=== PATIENT | female | born 1960 | race Caucasian/White ===

== ENCOUNTER → 2017-12-04 14:06 | Outpatient (CLI) | payer OTHER, SELFPAY ==
[2017-12-04 15:57] LABS: Anion Gap 8 (5-15); BUN 13 mg/dL (7-18); BUN/Creat Ratio 14.5 RATIO (10-20); Calcium,Total 8.3 mg/dL (8.5-10.1); Chloride 107 mmol/L (98-107); Cholesterol 258 mg/dL (200); EST Glomerular Filtration Rate 69 mL/min (>60); Est Glom Filt Rate - Afr Amer 83 mL/min (>60); Glucose 94 mg/dL (74-106); High Density Lipoprotein 38 mg/dL; Potassium 3.5 mmol/L (3.5-5.1); Sodium Level 142 mmol/L (136-145); Triglycerides 179 mg/dL; Very Low Density Lipoprotein 36 mg/dL (5-40)
== END ==
PROVIDERS: PCP Family Medicine; Visit Provider Family Medicine
DX: I10 Essential (primary) hypertension (principal)
CPT/HCPCS: 36415; 80048; 80061

== ENCOUNTER → 2018-07-09 15:13 | Outpatient (CLI) | payer OTHER, SELFPAY ==
[2018-07-15 11:32] LABS: HPV Reflexed? NOT INDICATED
== END ==
PROVIDERS: PCP Family Medicine; Visit Provider Family Medicine
DX: Z12.4 Encounter for screening for malignant neoplasm of cervix (principal)
CPT/HCPCS: 88175; G0145

== ENCOUNTER → 2018-07-26 12:40 | Outpatient (CLI) | payer OTHER, SELFPAY ==
--- NOTE | 2018-07-26 12:49 | BI_ITS ---
MAMMOGRAPHY - BILATERAL SCREENING REASON FOR EXAM: Female, 58 years old. Routine annual screening examination. PERTINENT HISTORY: Non-contributory. TECHNIQUE: Digital bilateral breast dianna (3D mammographic acquisition) in the CC and MLO projections. 2-D mediolateral oblique (MLO) and craniocaudad (CC) views of both breasts were obtained. CAD: Full Field Digital Mammography with Computer Added Detection was performed. COMPARISON: Comparison is made with prior study dated January 02, 2017 and July 14, 2015. FINDINGS: Breast Composition: There are scattered areas of fibroglandular density. There are no dominant masses or suspicious calcifications. Suspect a new 8.8 mm x 7.3 mm well-defined nodular density in the medial retroareolar region of the left breast. Correlation with ultrasound is recommended. Stable benign-appearing bilateral axillary lymph nodes. No other significant abnormalities are identified. BI/SCREENING MAMM (CAD), BILAT IMPRESSION: Questionable new 7.3 mm x 8.8 mm well-defined nodule in the medial retroareolar region of the left breast. Correlation with ultrasound is recommended. ASSESSMENT CATEGORY: BIRADS Category 0: Incomplete. Need additional imaging evaluation. A letter regarding these results will be sent to the patient by the facility within 30 days. Approximately 10% of breast cancers are not detected by mammography. A normal mammogram should not delay biopsy of a clinically suspicious abnormality. [id number] Electronically Signed: Elliot Root MD at 14:40 EST Tel [phone], Service support ,
--- OUTSIDE RECORDS SUMMARY | 2018-09-20 16:12 | XMS RPT_ITS ---
:1960 Author Organization [facility] Care Team Providers Name Role Phone Maryjane Pedroza Attending Unavailable Maryjane Pedroza Attending Unavailable Maryjane Pedroza Attending Unavailable Maryjane Pedroza Attending Unavailable PROBLEMS PROBLEMS No Problem Records FoundPROCEDURES PROCEDURES No Procedure Records FoundRESULTS RESULTS BREAST LIMITED Observed: 07/27/2018 Status: F Source: [place] UNILATERAL 2:33 PM [facility] REPOSITORY [facility] Imaging Services [address] [place] [address] Breast Limited Unilateral MR#: [id number] Acct: [id number] Name: MARGARITA MENDIETA Rep #: [id number] : 1960 F 58 From: Elliot Root MD PCP: Maryjane Pedroza MD Status: REG CLI Study: Breast Limited Unilateral Date of Exam: 07/27/18 Exam# [id number] Ordering Dr: Maryjane Pedroza MD STUDY: ULTRASOUND BREAST - LEFT REASON FOR EXAM: Female, 58 years old. Abnormal screening mammogram. TECHNIQUE: Axial and longitudinal images of the LEFT breast were performed with a high resolution ultrasound transducer. COMPARISON: Comparison is made with prior mammogram dated July 26, 2018. FINDINGS: LEFT Breast: There is a 7 mm x 8 mm x 5 mm cluster of small cysts at the 10:00 position breast at 1 cm from the nipple. This corresponds to the mammographic findings. US/Breast Limited Unilateral IMPRESSION: The mammographic findings corresponds to a 7 mm x 8 mm x 5 mm cluster of cysts. ASSESSMENT CATEGORY: BIRADS Category 2: Benign. A letter regarding these results will be sent to the patient by the facility within 30 days. Electronically Signed: Elliot Root MD at 15:06 EST Tel [phone], Service support , CC: Maryjane Pedroza MD Gun Examiner: Signed SCREENING MAMM (CAD), Observed: 07/26/2018 Status: F Source: [facility] 12:49 PM [facility] REPOSITORY [facility] Imaging Services [address] [place] [address] SCREENING MAMM (CAD), BILAT MR#: [id number] Acct: [id number] Name: MARGARITA MENDIETA Rep #: [id number] : 1960 F 58 From: Elliot Root MD PCP: Maryjane Pedroza MD Status: REG CLI Study: SCREENING MAMM (CAD), BILAT Date of Exam: 07/26/18 Exam# [id number] Ordering Dr: Maryjane Pedroza MD MAMMOGRAPHY - BILATERAL SCREENING REASON FOR EXAM: Female, 58 years old. Routine annual screening examination. PERTINENT HISTORY: Non-contributory. TECHNIQUE: Digital bilateral breast dianna (3D mammographic acquisition) in the CC and MLO projections. 2-D mediolateral oblique (MLO) and craniocaudad (CC) views of both breasts were obtained. CAD: Full Field Digital Mammography with Computer Added Detection was performed. COMPARISON: Comparison is made with prior study dated January 02, 2017 and July 14, 2015. FINDINGS: Breast Composition: There are scattered areas of fibroglandular density. There are no dominant masses or suspicious calcifications. Suspect a new 8.8 mm x 7.3 mm well-defined nodular density in the medial retroareolar region of the left breast. Correlation with ultrasound is recommended. Stable benign-appearing bilateral axillary lymph nodes. No other significant abnormalities are identified. BI/SCREENING MAMM (CAD), BILAT IMPRESSION: Questionable new 7.3 mm x 8.8 mm well-defined nodule in the medial retroareolar region of the left breast. Correlation with ultrasound is recommended. ASSESSMENT CATEGORY: BIRADS Category 0: Incomplete. Need additional imaging evaluation. A letter regarding these results will be sent to the patient by the facility within 30 days. Approximately 10% of breast cancers are not detected by mammography. A normal mammogram should not delay biopsy of a clinically suspicious abnormality. [id number] Electronically Signed: Elliot Root MD at 14:40 EST Tel [phone], Service support , CC: Maryjane Pedroza MD Gun Examiner: Signed PAP I-G W/RFX HRHPV Collected: 07/09/2018 Status: F Source: [place]GE 11:45 AM [facility] REPOSITORY Order Comment: CYTOLOGY INFORMATION: - CLINICAL INFORMATION: - DATE LMP/MENOPAUSE: MENOPAUSE MENOPAUSE - COLLECTION VIAL: Thin Prep Vial - BOSS DYER SOURCE: CERVICAL AND ENDOMETRIUM - COLLECTION TECHNIQUE: BRUSH/SPATULA Specimen Comment: [id number] Specimen Comment: Source.............Cervix;Endometrial Specimen Comment: Other..............Post Menopausal Specimen Comment: No. of containers..01 ThinPrep Vial TYPE CODE TESTS RESULT OUT OF RANGE REFERENCE UNITS LAB L7400.0800 . Normal DIAGN Comment Result Comment: NEGATIVE FOR INTRAEPITHELIAL LESION AND MALIGNANCY. CELLULAR CHANGES ASSOCIATED WITH ATROPHY ARE PRESENT. LAB L7400.0900 . Normal ADEQ Comment Result Comment: Satisfactory for evaluation. Endocervical component may not be distinguished in cases of atrophy. LAB L7400.1400 . Normal PERFORM Comment Result Comment: Kate Galindo, Diagnostic Medical Sonographer (ASCP) LAB L7400.2575 . Normal TEST METHOD Comment Result Comment: This liquid based ThinPrep(R) pap test was screened with the use of an image guided system. LAB L7400.2600 . Normal . COMM LAB L7400.2700 . Normal PAPSMR Comment Result Comment: The Pap smear is a screening test designed to aid in the detection of premalignant and malignant conditions of the uterine cervix. It is not a diagnostic procedure and should not be used as the sole means of detecting cervical cancer. Both false-positive and false-negative reports do occur. LAB L7400.2800 . Normal HPV RFLX Comment Result Comment: The HPV DNA reflex criteria were not met with this specimen result therefore, no HPV testing was performed. Performed at: [address] [id number] Rx Specialist: Selina Le MD, Phone: [phone] Performed By: #### L7400.0350 #### [facility] (refer to report for specific site) refer to report for address and phone number BASIC METABOLIC Collected: 12/04/2017 Status: F Source: SERGE PROFILE (BMP) 2:09 PM [facility] REPOSITORY TYPE CODE TESTS RESULT OUT OF RANGE REFERENCE UNITS LAB L501.0100 74-106 mg/dL Normal GLU 94 Result Comment: Please note revised GLUCOSE reference range effective 2017. LAB L501.1000 7-18 mg/dL Normal BUN 13 LAB L501.1100 0.55-1.02 mg/dL Normal CREAT,SERUM 0.90 Result Comment: The validity of the calculated GFR AND GFRAA in patients over 70 years has not been determined. Clinical correlation is essential. LAB L501.1110 >60 mL/min Normal EST GFR 69 Result Comment: Non- GFR Calc LAB L501.1115 >60 mL/min Normal EST GFR - AA 83 Result Comment: GFR Calc LAB L501.1300 10-20 RATIO Normal BUN/CRE 14.5 LAB L501.2200 8.5-10.1 mg/dL Low CA 8.3 LAB L501.5300 136-145 mmol/L NA Normal 142 LAB L501.5600 3.5-5.1 mmol/L K Normal 3.5 LAB L501.5900 98-107 mmol/L CL Normal 107 LAB L501.6100 21.0-32.0 mmol/L Normal CO2 27.0 LAB L501.6200 5-15 Normal GAP 8 Performed By: #### L500.2500, L500.4100 #### [facility] [address] [place], [address] LIPID PROFILE Collected: 12/04/2017 Status: F Source: [place] 2:09 [facility] REPOSITORY TYPE CODE TESTS RESULT OUT OF RANGE REFERENCE UNITS LAB L501.4900 200 mg/dL High CHOL 258 Result Comment: <200 mg/dL Desirable 200-240 mg/dL Borderline >240 mg/dL High Risk LAB L501.5000 mg/dL Normal TRIG 179 Result Comment: The drugs N-Acetylcysteine and Metamizole may falsely depress this assay. Serum Triglycerides Reference Interval Normal <150 mg/dL Borderline high 150 - 199 mg/dL High 200 - 499 mg/dL Very High > or = 500 mg/dL LAB L501.6400 mg/dL Low HDL 38 Result Comment: The drugs N-Acetylcysteine and Metamizole may falsely depress this assay. Reference Range HDL <40 mg/dL Low HDL Cholesterol HDL >or= 60 mg/dL High HDL Cholesterol LAB L501.6500 0-130 mg/dL High LDL 184 LAB L501.6600 5-40 mg/dL Normal VLDL 36 Performed By: #### L500.2500, L500.4100 #### [facility] [address] [place], [address] ALLERGIES ALLERGIES No Allergies Records FoundENCOUNTERS ENCOUNTERS ADMIT/DISCHARGE ACCOUNT ADMITTING ENCOUNTER LOCATION SOURCE NUMBER CLASS 07/27/2018 [id number] Ambulatory Serge Serge 2 [facility] ing:OPUS Repository 07/26/2018 [id number] Ambulatory Sachse Sachse 1 [facility] ing:OPBI Repository 07/09/2018 [id number] Ambulatory Serge Serge 7 [facility] ing:LABSPEC Repository 12/04/2017 [id number] Ambulatory Sachse Serge 6 [facility] ing:MFPLAB Repository PAYERS PAYERS ENCOUNTER GUARANTOR PAYER SUBSCRIBER SOURCE 07/27/2018 MARGARITA Primary FLAVIOWAYLON Valentine [id number] Insurance:SELF VALENTINEDOB: [facility] [id number], [place]olicy Number: Repository [id number]: [phone] [id number] [phone] () Date:2437-00-09CF [address] [place] [address]NX: 07/27/2018 Secondary NOT GIVENUNK Serge Insurance:SELF PAY [facility] Number: Effective Repository Date:2018-07-27 07/26/2018 FLAVIO Primary FLAVIO Valentine [id number] Insurance:SELF VALENTINEDOB: [facility] [id number] Number: Repository [id number]: [phone] [id number] [phone] () Date:9305-14-89DR [address] [address]OW: 07/26/2018 Secondary NOT GIVENUNK Serge Insurance:SELF PAY [facility] Number: Effective Repository Date:2018-06-14 07/09/2018 MARGARITA Primary Flaviowaylon Valentine [id number] Insurance:MEDICAL ValentineDOB: [facility] 9712-93-[address], [place] Number: Repository [id number]: 330 [id number] [phone] () Date:3886-17-11LG [address] [address]CJ: 07/09/2018 Secondary NOT GIVENUNK Sachse Insurance:SELF PAY [facility] Number: Effective Repository Date:2018-07-09 12/04/2017 Flavio Primary Flavio Serge [id number] Insurance:MEDICAL PaulinoOB: [facility] [id number] Number: Repository [id number]: 330 [id number] [phone] () Date:5487-60-63FI [address] [address]ZD: 12/04/2017 Secondary NOT GIVENUNK Sachse Insurance:SELF PAY [facility] Number: Effective Repository Date:2017-12-04
== END ==
PROVIDERS: PCP Family Medicine; Visit Provider Family Medicine
DX: Z12.31 Encounter for screening mammogram for malignant neoplasm of breast (principal)
CPT/HCPCS: 77063; 77067

== ENCOUNTER → 2018-07-27 14:31 | Outpatient (CLI) | payer OTHER, SELFPAY ==
--- NOTE | 2018-07-27 14:33 | US_ITS ---
STUDY: ULTRASOUND BREAST - LEFT REASON FOR EXAM: Female, 58 years old. Abnormal screening mammogram. TECHNIQUE: Axial and longitudinal images of the LEFT breast were performed with a high resolution ultrasound transducer. COMPARISON: Comparison is made with prior mammogram dated July 26, 2018. FINDINGS: LEFT Breast: There is a 7 mm x 8 mm x 5 mm cluster of small cysts at the 10:00 position breast at 1 cm from the nipple. This corresponds to the mammographic findings. US/Breast Limited Unilateral IMPRESSION: The mammographic findings corresponds to a 7 mm x 8 mm x 5 mm cluster of cysts. ASSESSMENT CATEGORY: BIRADS Category 2: Benign. A letter regarding these results will be sent to the patient by the facility within 30 days. Electronically Signed: Elliot Root MD at 15:06 EST Tel [phone], Service support ,
--- OUTSIDE RECORDS SUMMARY | 2018-09-21 14:03 | XMS RPT_ITS ---
:1960 Author Organization [facility]IP Care Team Providers Name Role Phone Maryjane Pedroza Attending Unavailable Maryjane Pedroza Attending Unavailable Maryjane Pedroza Attending Unavailable Maryjane Pedroza Attending Unavailable PROBLEMS PROBLEMS No Problem Records FoundPROCEDURES PROCEDURES No Procedure Records FoundRESULTS RESULTS BREAST LIMITED Observed: 07/27/2018 Status: F Source: [place] UNILATERAL 2:33 PM [facility] [place] [facility] Imaging Services [address] [place] [address] Breast Limited Unilateral MR#: [id number] Acct: [id number] Name: MARGARITA MENDIETA Rep #: [id number] : 1960 F 58 From: Elliot Root MD PCP: Maryjane Pedroza MD Status: REG CLI Study: Breast Limited Unilateral Date of Exam: 07/27/18 Exam# [id number] Ordering Dr: Maryjane Pedroza MD STUDY: ULTRASOUND [...] Elliot Root MD at 15:06 EST Tel [phone], Service support , CC: Maryjane Pedroza MD Section Housekeeper: Signed SCREENING MAMM (CAD), Observed: 07/26/2018 Status: F Source: [facility] 12:49 PM [facility] [place] [facility] Imaging Services [address] [place] [address] SCREENING MAMM (CAD), BILAT MR#: [id number] Acct: [id number] Name: MARGARITA MENDIETA Rep #: [id number] : 1960 F 58 From: Elliot Root MD PCP: Maryjane Pedroza MD Status: REG CLI Study: SCREENING MAMM (CAD), BILAT Date of Exam: 07/26/18 Exam# [id number] Ordering Dr: Maryjane Pedroza MD MAMMOGRAPHY - [...] delay biopsy of a clinically suspicious abnormality. [id number] Electronically Signed: Elliot Root MD at 14:40 EST Tel [phone], Service support , CC: Maryjane Pedroza MD Section Housekeeper: Signed PAP I-G W/RFX HRHPV Collected: 07/09/2018 Status: F Source: [place] 11:45 AM [facility] [place] Order Comment: CYTOLOGY INFORMATION: - CLINICAL INFORMATION: - DATE LMP/MENOPAUSE: MENOPAUSE MENOPAUSE - COLLECTION VIAL: Thin Prep Vial - T RAIL TURNER SOURCE: CERVICAL AND ENDOMETRIUM - COLLECTION TECHNIQUE: BRUSH/SPATULA Specimen Comment: [id number] Specimen Comment: Source.............Cervix;Endometrial Specimen Comment: Other..............Post Menopausal [...] Normal PERFORM Comment Result Comment: Kate Galindo, [place] Applier (ASCP) LAB L7400.2575 . Normal TEST METHOD [...] no HPV testing was performed. Performed at: [address] [id number] Animal Control Specialist: Selina Le MD, Phone: [phone] Performed By: #### L7400.0350 #### [facility] (refer to report for specific site) refer to report for address and phone number BASIC METABOLIC Collected: 12/04/2017 Status: F Source: [place] PROFILE (BMP) 2:09 PM [facility] [place] TYPE CODE TESTS RESULT OUT OF [...] #### [facility] [address] [place], [address] LIPID PROFILE Collected: 12/04/2017 Status: F Source: [place] 2:09 [facility] [place] TYPE CODE TESTS RESULT OUT OF [...] [facility] [address] [place], [address] ALLERGIES ALLERGIES No Allergies Records FoundENCOUNTERS ENCOUNTERS ADMIT/DISCHARGE ACCOUNT ADMITTING ENCOUNTER LOCATION SOURCE NUMBER CLASS 07/27/2018 [id number] Ambulatory Serge Serge 2 [facility] ing:OPUS Repository 07/26/2018 [id number] Ambulatory Christiana Christiana 1 [facility] ing:OPBI Repository 07/09/2018 [id number] Ambulatory Serge Serge 7 [facility] ing:LABSPEC Repository 12/04/2017 [id number] Ambulatory Christiana Serge 6 [facility] ing:MFPLAB Repository PAYERS PAYERS ENCOUNTER GUARANTOR PAYER SUBSCRIBER SOURCE 07/27/2018 MARGARITA Primary FLAVIOWAYLON Valentine [id number] Insurance:SELF VALENTINEDOB: [facility] [id number] Number: Repository [id number]: [phone] [id number] [phone] () Date:3491-72-36GD [address] [place] [address]YX: 07/27/2018 Secondary NOT GIVENUNK Serge Insurance:SELF PAY [facility] Number: Effective Repository Date:2018-07-27 07/26/2018 FLAVIO Primary FLAVIO Valentine [id number] Insurance:SELF VALENTINEDOB: [facility] [id number] Number: Repository [id number]: [phone] [id number] [phone] () Date:5223-24-22SY [address] [address]EL: 07/26/2018 Secondary NOT GIVENUNK Serge Insurance:SELF PAY [facility] Number: Effective Repository Date:2018-06-14 07/09/2018 MARGARITA Primary Flaviowaylon Valentine [id number] Insurance:MEDICAL ValentineDOB: [facility] [id number] Number: Repository [id number]: 330 [id number] [phone] () Date:1142-76-18PL [address] [address]JG: 07/09/2018 Secondary NOT GIVENUNK Christiana Insurance:SELF PAY [facility] Number: Effective Repository Date:2018-07-09 12/04/2017 Flavio Primary Flavio Serge [id number] Insurance:MEDICAL PaulinoOB: [facility] [id number] Number: Repository [id number]: 330 [id number] [phone] () Date:3282-70-04TG [address] [address]QW: 12/04/2017 Secondary NOT GIVENUNK Christiana Insurance:SELF PAY [facility] Number: Effective Repository Date:2017-12-04
== END ==
PROVIDERS: PCP Family Medicine; Visit Provider Family Medicine
DX: N63.0 Unspecified lump in unspecified breast (principal)
CPT/HCPCS: 76642

== ENCOUNTER → 2019-11-04 13:33 | Outpatient (CLI) | payer OTHER, SELFPAY ==
--- NOTE | 2019-11-04 13:36 | BI_ITS ---
MAMMOGRAPHY - BILATERAL SCREENING REASON FOR EXAM: Female, 59 years old. Routine annual screening examination. PERTINENT HISTORY: Non-contributory. TECHNIQUE: Digital bilateral breast ramos (3D mammographic acquisition) in the CC and MLO projections. 2-D mediolateral oblique (MLO) and craniocaudad (CC) views of both breasts were obtained. CAD: Full Field Digital Mammography with Computer Added Detection was performed. COMPARISON: Comparison is made with prior study dated July 26, 2018 and January 02, 2017. FINDINGS: Breast Composition: There are scattered areas of fibroglandular density. There are no dominant masses or suspicious calcifications. The previously seen subcentimeter well-defined nodule in the medial retroareolar region of the left breast is not seen at this time. No other significant abnormalities are identified. BI/SCREEN MAMM (CAD) W/RAMOS BILAT IMPRESSION: Stable bilateral screening mammogram. Yearly follow-up mammogram recommended. (A) ASSESSMENT CATEGORY: BIRADS Category 1: Negative. A letter regarding these results will be sent to the patient by the facility within 30 days. Approximately 10% of breast cancers are not detected by mammography. A normal mammogram should not delay biopsy of a clinically suspicious abnormality. [id number] Electronically Signed: Elliot Root, at 15:14 EDT , Service support ,
== END ==
PROVIDERS: PCP Family Medicine; Referring Provider Family Medicine; Visit Provider Family Medicine
DX: Z12.31 Encounter for screening mammogram for malignant neoplasm of breast (principal)
CPT/HCPCS: 77063; 77067

== ENCOUNTER → 2020-08-14 11:28 | Outpatient (CLI) | payer OTHER, SELFPAY ==
[2020-08-14 16:16] LABS: Absolute Lymphocyte Count 2.03 X10^3/uL (0.83-4.51); Absolute Neutrophil Count 3.6 X10^3/uL (2.0-7.7); Basophil# 0.01 X10^3/uL; Basophil% 0.2 % (0-1); Eosinophil# 0.08 X10^3/uL; Eosinophils% 1.3 % (0-5); Hematocrit 46.8 % (37-47); Hemoglobin 15.4 g/dL (12.0-15.0); Lymphocyte # 2.03 X10^3/ul (4.0); Lymphocyte % 32.6 % (19-41); Mean Corp Hgb Conc 32.9 g/dL (32-36); Mean Corpuscular Hgb 29.8 pg (27.0-32.0); Mean Corpuscular Volume 90.7 fL (81-99); Mean Platelet Vol. 10.8 fl (6.2-12.0); Monocyte# 0.47 X10^3/uL; Monocyte% 7.5 % (0-10); NRBC Flagged by Analyzer 0 % (0-5); Neutrophil # 3.62 X10^3/uL (2.7-7.7); Neutrophil % 58.1 % (47-70); Platelet Count 246 K/mm3 (150-450); RBC Distribution Width CV 12.8 % (11.6-14.6); RBC Distribution Width SD 42.5 fl (35.1-43.9); Red Blood Count 5.16 M/mm3 (4.2-5.4); White Blood Count 6.2 K/mm3 (4.4-11.0)
[2020-08-14 16:45] LABS: AST(SGOT) 19 U/L (15-37); Alanine Aminotransfer ALT/SGPT 30 U/L (13-56); Anion Gap 8 (5-15); BUN 10 mg/dL (7-18); Calcium,Total 8.8 mg/dL (8.5-10.1); Chloride 106 mmol/L (98-107); Cholesterol 312 mg/dL (200); Creatinine, Serum 0.91 mg/dL (0.55-1.02); EST Glomerular Filtration Rate 67 mL/min (>60); Est Glom Filt Rate - Afr Amer 81 mL/min (>60); Glucose 95 mg/dL (74-106); High Density Lipoprotein 51 mg/dL; Potassium 3.9 mmol/L (3.5-5.1); Sodium Level 139 mmol/L (136-145); Thyroid Stim Hormone (TSH) 1.39 uIU/mL (0.358-3.74); Triglycerides 197 mg/dL; Very Low Density Lipoprotein 39 mg/dL (5-40)
[2020-08-14 16:46] LABS: Hemoglobin A1c 5.7 % (3.8-5.6)
== END ==
PROVIDERS: PCP Family Medicine; Referring Provider Family Medicine; Visit Provider Family Medicine
DX: I10 Essential (primary) hypertension (principal); E78.00 Pure hypercholesterolemia, unspecified; E66.9 Obesity, unspecified; N95.0 Postmenopausal bleeding
CPT/HCPCS: 36415; 80048; 80061; 83036; 84443; 84450; 84460; 85025

== ENCOUNTER → 2020-08-17 13:08 | Outpatient (CLI) | payer OTHER, SELFPAY ==
--- NOTE | 2020-08-17 13:10 | US_ITS ---
ACR Level 3 findings have been noted. An addendum which confirms receipt of the report will follow. STUDY: ULTRASOUND TRANSVAGINAL CLINICAL: Female, 60 years old. Postmenopausal bleeding. TECHNIQUE: Transvaginal COMPARISON: None. FINDINGS: Uterus is anteverted in midline and measures 8.3 x 5.1 x 3.4 cm. Endometrial thickness 18 mm. Endometrium is heterogeneous. 0.3 cm calcification anterior body with posterior shadowing likely representing an incidental calcified fibroid. Cervix is normal. Right ovary not visualized. Left ovary measures 1.9 x 1.5 x 1.7 cm and is normal. Normal vascular flow. No adnexal mass. No free fluid in the cul-de-sac. US/Transvaginal Non- IMPRESSION: Significantly thickened endometrium in this postmenopausal woman with bleeding. Malignancy is a consideration. Recommend OIL FIRE SPECIALIST consult. Right ovary not visualized. Small calcified uterine fibroid. Electronically Signed: Marshall Palacios MD at 3:34 EST , Service support ,
== END ==
PROVIDERS: PCP Family Medicine; Referring Provider Family Medicine; Visit Provider Family Medicine
DX: N95.0 Postmenopausal bleeding (principal)
CPT/HCPCS: 76830

== ENCOUNTER → 2020-08-20 | Outpatient (CLI) | payer OTHER, SELFPAY ==
[2020-08-18 13:27] VITALS: BMI 34.0
--- NOTE | 2020-08-19 | EMB_PTH ---
PATIENT: MARGARITA MENDIETA [facility]: [facility] U#:[id number] AGE/SX: 60/F ROOM: RE08/20/[address]: Dr. Kristina Jones MD : 1960 BED: DIS: 08/20/2020 SPEC #: [id number] RECD: 08/19/20 17:02 STATUS: CARYL RELilo #: [id number] MAXX: 08/19/20 00:[address]: Kristina Jones DEPT: SURGICAL PATHOLOGY RECD BY: Javier Thomas ENTERED: 08/20/20 08:23 SP TYPE: ENDOM BX/C PERLA DR: Dr. Maryjane Pedroza MD Tissues: Endometrium, NOS Procedures: Surgery Specimen Level IV HEADER OPERATION: Endometrial biopsy PRE-OP DIAGNOSIS: PMB TISSUE SUBMITTED: Endometrial biopsy MICROSCOPIC DIAGNOSIS Endometrium, biopsy: Complex hyperplasia with atypia. AM:joie 08/24/20 COMMENT Case has been reviewed in consultation with Dr. Alvarenga who concurs with the above diagnosis. IDC:SJ MICROSCOPIC DESCRIPTION Slides are reviewed. GROSS DESCRIPTION Received is one container labeled with the patient's name and not further designated. The specimen consists of multiple irregular fragments of light white soft tissue that in aggregate measure 2.5 x 1 x 0.1 cm. The specimen is totally submitted in one cassette. / COLUMBA:joie 08/19/20 TC:? CPT: 01210
== END | disposition home or self-care (01) ==
LOC: LABSPEC 07:43
PROVIDERS: PCP Family Medicine; Visit Provider Obstetrics & Gynecology
DX: N95.0 Postmenopausal bleeding (principal)
CPT/HCPCS: 88305

== ENCOUNTER 2020-11-13 15:15 | Outpatient (RCR) | payer OTHER, SELFPAY ==
[2020-08-18 13:27] VITALS: BMI 34.0
[2020-11-13] MEDS: COVID-19 VACC, MRNA(PFIZER)/PF 30 MCG/0.3 ML SYRINGE IM (14:35)
[2020-12-04] MEDS: COVID-19 VACC, MRNA(PFIZER)/PF 30 MCG/0.3 ML SYRINGE IM (14:34)
== END 2020-11-13 23:59 ==
LOC: IMMUN 15:15
PROVIDERS: PCP Family Medicine; Referring Provider Family Medicine; Visit Provider Family Medicine
DX: Z23 Encounter for immunization (principal)
CPT/HCPCS: 0001A; 0002A; 91300

== ENCOUNTER → 2021-02-17 15:54 | Outpatient (CLI) | payer OTHER, SELFPAY ==
[2020-08-18 13:27] VITALS: BMI 34.0
--- NOTE | 2021-02-17 15:57 | BI_ITS ---
MAMMOGRAPHY - BILATERAL SCREENING 3-D TOMOSYNTHESIS REASON FOR EXAM: Female, 60 years old. SCREENING PERTINENT HISTORY: No significant family history. TECHNIQUE: 2-D mammograms and 3-D Tomosynthesis of the breast (s) were performed. CAD was performed. COMPARISON: 11/04/2019 FINDINGS: The breast composition is of scattered fibroglandular tissue Scattered benign calcifications are seen. No dense spiculated masses or suspicious microcalcifications are identified. No architectural distortion is identified. There is no skin thickening or nipple retraction. Tiny benign intramammary lymph node seen on the right. There has been no significant change since the prior study of 11/04/2019. BI/SCRN MAMM (CAD)W/RAMOS BILAT IMPRESSION: No mammographic signs of malignancy. Routine yearly mammograms recommended. ASSESSMENT CATEGORY: BIRADS Category 1: Negative. A letter regarding these results will be sent to the patient by the facility within 30 days. FOLLOW UP RECOMMENDATION: Yearly follow up mammogram recommended. (A) Approximately 10% of breast cancers are not detected by mammography. A normal mammogram should not delay biopsy of a clinically suspicious abnormality. Electronically Signed: Feliciano Parks, at 16:14 EDT Tel , Service support ,
== END ==
PROVIDERS: PCP Family Medicine; Referring Provider Family Medicine; Visit Provider Family Medicine
DX: Z01.419 Encounter for gynecological examination (general) (routine) without abnormal findings (principal); Z12.31 Encounter for screening mammogram for malignant neoplasm of breast
CPT/HCPCS: 77063; 77067

== ENCOUNTER → 2021-05-04 15:21 | Outpatient (CLI) | payer OTHER, SELFPAY ==
--- NOTE | 2021-05-04 15:26 | RAD_ITS ---
STUDY: X-RAY - LUMBAR SPINE REASON FOR EXAM: Female, 61 years old. BACK PAIN TECHNIQUE: AP, bilateral oblique, lateral, and coned-down lateral radiographic view(s) of the lumbar spine were obtained. COMPARISON: None FINDINGS: There is straightening of the normal lumbar lordosis. There is no substantial scoliosis. There is a normal alignment of the vertebrae. L4 inferior endplate compression deformity. There is diffuse demineralization with multi-level endplate spondylosis. There is multi-level degenerative disc disease with multi-level disc space narrowing. There is no demonstrated spondylolysis of the pars interarticulares. There is atherosclerotic calcification of the abdominal aorta without a demonstrated aneurysm. RAD/L/S Spine Min 4 Views IMPRESSION: L4 inferior endplate compression deformity of uncertain acuity. Degenerative changes detailed above. Electronically Signed: Bishop Ding MD at 7:53 EDT Tel , Service support ,
--- NOTE | 2021-05-04 15:26 | RAD_ITS ---
STUDY: X-RAY - PELVIS AND LEFT HIP REASON FOR EXAM: Female, 61 years old. Pain. TECHNIQUE: 3 views of the pelvis and hip. COMPARISON: None. FINDINGS: There is a non-specific bowel gas pattern. Phleboliths. Normal bilateral iliac wings, sacroiliac joints and visualized sacrum. Normal bilateral superior and inferior pubic rami. Normal pubic symphysis. Normal bilateral ischial tuberosities. Normal visualized femoral head. Normal acetabulum. Normal hip joint. RAD/HIP, UNI W/ Pelvis 2-3 Views IMPRESSION: Normal x-ray examination of the pelvis and hip. No acute abnormality, erosive changes or periostitis. Electronically Signed: Keenan Noel MD at 11:12 EDT , Service support ,
== END ==
PROVIDERS: PCP Family Medicine; Referring Provider Family Medicine; Visit Provider Family Medicine
DX: M54.9 Dorsalgia, unspecified (principal); M25.552 Pain in left hip
CPT/HCPCS: 72110; 73502

== ENCOUNTER → 2021-05-18 15:04 | Outpatient (CLI) | payer OTHER, SELFPAY ==
--- NOTE | 2021-05-18 15:09 | BD_ITS ---
STUDY: DUAL ENERGY X-RAY ABSORPTIOMETRY / DXA REASON FOR EXAM: Female, 61 years old. M54.9. Patient is postmenopausal. TECHNIQUE: Bone Mineral Density (BMD) measurements of lumbar spine and bilateral hips were obtained. COMPARISON: None. FINDINGS: Lumbar Spine (L1-L4): g/cm2 (0.639) / T-score (-3.7) / Z-score (-2.3) Findings are suggestive of osteoporosis with a high fracture risk. Left Femur Total: g/cm2 (0.821) / T-score (-1.0) / Z-score (0.0) Left Femoral Neck: g/cm2 (0.527) / T-score (-2.9) / Z-score (-1.6) Right Femur Total: g/cm2 (0.730) / T-score (-1.7) / Z-score (-0.8) Right Femoral Neck: g/cm2 (0.581) / T-score (-2.4) / Z-score (-1.1) BD/Dexa Bone Density Study IMPRESSION: The patient is considered osteoporotic as outlined below according to World Main Organization (WHO) criteria with a high fracture risk. Reference Information: The T-score is the number of standard deviations above or below the standard which is normal for young adults at their peak bone mineral density. The World Health Organization (WHO) interprets the T-scores as follows: Above -1 Normal bone density Between -1 and -2.5 Osteopenia Equal to / or below -2.5 Osteoporosis As a practical clinical guideline, osteopenia may be graded as follows: Mild -1 through -1.5 Moderate -1.6 through -2.0 Severe -2.1 through -2.4 The Z-score is the number of standard deviations above or below age-matched controls. A Z-score of less than -1.5 would be considered abnormal. References: 1. NIH Osteoporosis and Related Bone Diseases www osteo.org 2. International Society for Clinical Densitometry www iscd.org 3. National Osteoporosis Foundation www nof.org Electronically Signed: Elliot Root MD at 14:51 EDT , Service support ,
== END ==
PROVIDERS: PCP Family Medicine; Referring Provider Family Medicine; Visit Provider Family Medicine
DX: Z78.0 Asymptomatic menopausal state (principal); M54.9 Dorsalgia, unspecified
CPT/HCPCS: 77080

== ENCOUNTER → 2021-08-04 14:26 | Outpatient (CLI) | payer OTHER, SELFPAY ==
[2021-08-04 17:41] LABS: Absolute Lymphocyte Count 2.76 X10^3/uL (0.83-4.51); Basophil# 0.02 X10^3/uL; Basophil% 0.2 % (0-1); Eosinophil# 0.14 X10^3/uL; Eosinophils% 1.7 % (0-5); Hematocrit 44.6 % (37-47); Hemoglobin 14.9 g/dL (12.0-15.0); Lymphocyte # 2.76 X10^3/ul (0.83-4.51); Lymphocyte % 32.5 % (19-41); Mean Corp Hgb Conc 33.4 g/dL (32-36); Mean Corpuscular Hgb 29.7 pg (27.0-32.0); Mean Corpuscular Volume 88.8 fL (81-99); Mean Platelet Vol. 10.6 fl (6.2-12.0); Monocyte# 0.57 X10^3/uL; Monocyte% 6.7 % (0-10); NRBC Flagged by Analyzer 0 % (0-5); Neutrophil # 4.97 X10^3/uL (2.7-7.7); Neutrophil % 58.7 % (47-70); Platelet Count 253 K/mm3 (150-450); RBC Distribution Width CV 12.7 % (11.6-14.6); RBC Distribution Width SD 41.2 fl (35.1-43.9); Red Blood Count 5.02 M/mm3 (4.2-5.4); White Blood Count 8.5 K/mm3 (4.4-11.0)
[2021-08-04 18:17] LABS: AST(SGOT) 19 U/L (15-37); Alanine Aminotransfer ALT/SGPT 31 U/L (13-56); Albumin, Serum 3.8 g/dL (3.2-5.0); Alkaline Phosphatase 117 U/L (45-117); Bilirubin, Direct 0.06 mg/dL (0.00-0.30); Globulin 4.3 g/dL (2.2-4.2); Protein, Total 8.1 g/dL (6.4-8.2)
[2021-08-04 20:57] LABS: Internal QC Validated? YES +Cl - CLEAR BKGD; Monotest Negative (Negative)
== END ==
PROVIDERS: PCP Family Medicine; Referring Provider Family Medicine; Visit Provider Family Medicine
DX: R53.81 Other malaise (principal); R53.83 Other fatigue
CPT/HCPCS: 36415; 80076; 85025; 86308

== ENCOUNTER → 2021-08-23 | Outpatient (CLI) | payer OTHER, SELFPAY | END | disposition home or self-care (01) | PROVIDERS: PCP Family Medicine; Referring Provider Family Medicine; Visit Provider Family Medicine | DX: U07.1 COVID-19 (principal) | CPT/HCPCS: 87635; U0005; U0003 ==

== ENCOUNTER → 2022-05-16 | Outpatient (CLI) | payer BC, SELFPAY ==
[2022-05-16 15:43] LABS: ALB/GLOB Ratio 0.9 RATIO (0.9-2.4); AST(SGOT) 17 U/L (15-37); Alanine Aminotransfer ALT/SGPT 25 U/L (13-56); Albumin, Serum 3.6 g/dL (3.2-5.0); Alkaline Phosphatase 124 U/L (45-117); Anion Gap 8 (5-15); BUN 14 mg/dL (7-18); BUN/Creat Ratio 14.8 RATIO (10-20); Calcium,Total 9.1 mg/dL (8.5-10.1); Chloride 106 mmol/L (98-107); Cholesterol 312 mg/dL (200); Creatinine, Serum 0.94 mg/dL (0.55-1.02); EST Glomerular Filtration Rate 64 mL/min (>60); Est Glom Filt Rate - Afr Amer 77 mL/min (>60); Globulin 4.1 g/dL (2.2-4.2); Glucose 93 mg/dL (74-106); High Density Lipoprotein 47 mg/dL; Potassium 3.9 mmol/L (3.5-5.1); Protein, Total 7.7 g/dL (6.4-8.2); Sodium Level 140 mmol/L (136-145); Triglycerides 204 mg/dL; Very Low Density Lipoprotein 41 mg/dL (5-40)
[2022-05-16 17:17] LABS: Hemoglobin A1c 5.9 % (3.8-5.6)
== END | disposition home or self-care (01) ==
LOC: MFPLAB 11:54
PROVIDERS: Nurse Practitioner Family; PCP Family Medicine; Visit Provider Family Medicine
DX: E78.00 Pure hypercholesterolemia, unspecified (principal); Z13.1 Encounter for screening for diabetes mellitus
CPT/HCPCS: 36415; 80053; 80061; 83036

== ENCOUNTER → 2022-05-18 | Outpatient (CLI) | payer BC, SELFPAY ==
--- NOTE | 2022-05-18 13:01 | BI_ITS ---
MAMMOGRAPHY - BILATERAL SCREENING 3-D TOMOSYNTHESIS REASON FOR EXAM: Female, 62 years old. SCREENING PERTINENT HISTORY: No significant family history. TECHNIQUE: 2-D mammograms and 3-D Tomosynthesis of the breast (s) were performed. CAD was performed. COMPARISON: 02/17/2021 FINDINGS: The breast composition is heterogeneously dense that can obscure small breast masses. Scattered benign calcifications are seen. No dense spiculated masses or suspicious microcalcifications are identified. No architectural distortion is identified. There is no skin thickening or retraction. There has been no significant change since the prior study. BI/SCRN MAMM (CAD)W/RAMOS BILAT IMPRESSION: No mammographic signs of malignancy. Routine yearly mammograms recommended. ASSESSMENT CATEGORY: BIRADS Category 1: Negative. A letter regarding these results will be sent to the patient by the facility within 30 days. FOLLOW UP RECOMMENDATION: Yearly follow up mammogram recommended. (A) Approximately 10% of breast cancers are not detected by mammography. A normal mammogram should not delay biopsy of a clinically suspicious abnormality. Electronically Signed: Shashi Soares MD at 14:44 EDT ,
== END | disposition home or self-care (01) ==
LOC: OPBI 12:59
PROVIDERS: PCP Family Medicine; Visit Provider Nurse Practitioner Family
DX: Z12.31 Encounter for screening mammogram for malignant neoplasm of breast (principal)
CPT/HCPCS: 77063; 77067

== ENCOUNTER → 2023-01-19 | Outpatient (CLI) | payer BC, SELFPAY ==
[2023-01-19 15:09] LABS: Absolute Lymphocyte Count 2.27 X10^3/uL (0.83-4.51); Absolute Neutrophil Count 5.3 X10^3/uL (2.0-7.7); Basophil# 0.01 X10^3/uL; Basophil% 0.1 % (0-1); Eosinophil# 0.12 X10^3/uL; Eosinophils% 1.5 % (0-5); Hematocrit 46.4 % (37-47); Hemoglobin 15.1 g/dL (12.0-15.0); Lymphocyte # 2.27 X10^3/ul (0.83-4.51); Lymphocyte % 27.6 % (19-41); Mean Corp Hgb Conc 32.5 g/dL (32-36); Mean Corpuscular Hgb 29.7 pg (27.0-32.0); Mean Corpuscular Volume 91.3 fL (81-99); Mean Platelet Vol. 10.5 fl (6.2-12.0); Monocyte# 0.52 X10^3/uL; Monocyte% 6.3 % (0-10); NRBC Flagged by Analyzer 0 % (0-5); Neutrophil # 5.27 X10^3/uL (2.7-7.7); Neutrophil % 64.1 % (47-70); Platelet Count 240 K/mm3 (150-450); RBC Distribution Width CV 12.8 % (11.6-14.6); RBC Distribution Width SD 42.8 fl (35.1-43.9); Red Blood Count 5.08 M/mm3 (4.2-5.4); White Blood Count 8.2 K/mm3 (4.4-11.0)
[2023-01-19 15:47] LABS: ALB/GLOB Ratio 0.9 RATIO (0.9-2.4); AST(SGOT) 20 U/L (15-37); Alanine Aminotransfer ALT/SGPT 26 U/L (13-56); Albumin, Serum 3.6 g/dL (3.2-5.0); Alkaline Phosphatase 92 U/L (45-117); Anion Gap 3 (5-15); BUN 12 mg/dL (7-18); BUN/Creat Ratio 13.7 RATIO (10-20); Calcium,Total 8.7 mg/dL (8.5-10.1); Chloride 110 mmol/L (98-107); Creatinine, Serum 0.87 mg/dL (0.55-1.02); EST Glomerular Filtration Rate 70 mL/min (>60); Est Glom Filt Rate - Afr Amer 85 mL/min (>60); Globulin 3.9 g/dL (2.2-4.2); Glucose 100 mg/dL (74-106); Potassium 3.9 mmol/L (3.5-5.1); Protein, Total 7.5 g/dL (6.4-8.2); Sodium Level 142 mmol/L (136-145)
[2023-01-19 16:00] LABS: Microalbumin,Random Urine 20.4 mg/L (NO RANGE EST.)
== END | disposition home or self-care (01) ==
LOC: MFPLAB 11:59
PROVIDERS: PCP Family Medicine; Visit Provider Family Medicine
DX: R13.14 Dysphagia, pharyngoesophageal phase (principal); I10 Essential (primary) hypertension
CPT/HCPCS: 36415; 80053; 82043; 82570; 85025

== ENCOUNTER → 2023-01-24 | Outpatient (CLI) | payer BC, SELFPAY ==
--- NOTE | 2023-01-24 10:00 | RAD_ITS ---
STUDY: X-RAY - ESOPHAGUS (BARIUM SWALLOW) WITH FLUOROSCOPY REASON FOR EXAM: Female, 62 years old. With 14mm tablet TECHNIQUE: 24 view(s) of the esophagus were obtained following swallowing of barium. 17.35 mGy FLUOROSCOPY TIME (if supplied): (30 seconds) minutes/seconds COMPARISON: None. FINDINGS: There is no demonstrated esophageal foreign body. There is no demonstrated stricture or mucosal abnormality. Small hiatal hernia with minimal narrowing at the gastroesophageal junction. The patient ingested a 12 mm tablet of barium without any difficulty. Normal visualized aortic arch and descending thoracic aorta. Normal visualized pulmonary parenchyma. Normal visualized osseous structures of the thorax. RAD/Esophagus Dual Contrast IMPRESSION: Small sliding hiatal hernia with minimal narrowing as mentioned. The patient ingested a 12 mm tablet of barium without difficulty. Electronically Signed: Elliot Root MD at 14:32 EDT ,
== END | disposition home or self-care (01) ==
LOC: RAD 09:56
PROVIDERS: PCP Family Medicine; Referring Provider Family Medicine; Visit Provider Family Medicine
DX: R13.14 Dysphagia, pharyngoesophageal phase (principal)
CPT/HCPCS: 74221

== ENCOUNTER → 2023-09-19 | Outpatient (CLI) | payer BC, SELFPAY ==
--- NOTE | 2023-09-19 12:23 | BI_ITS ---
MAMMOGRAPHY - BILATERAL SCREENING REASON FOR EXAM: Female, 63 years old. Routine annual screening examination. PERTINENT HISTORY: Non-contributory. TECHNIQUE: Digital bilateral breast ramos (3D mammographic acquisition) in the CC and MLO projections. 2-D mediolateral oblique (MLO) and craniocaudad (CC) views of both breasts were obtained. CAD: Full Field Digital Mammography with Computer Added Detection was performed. COMPARISON: Comparison is made with prior study August 17, 2022 and February 17, 2021. FINDINGS: Breast Composition: The breasts are heterogeneously dense, which may obscure small masses. There are no dominant masses or suspicious calcifications. Stable fat-containing bilateral axillary lymph nodes. No other significant abnormalities are identified. There has been no significant change since the prior study. BI/SCRN MAMM (CAD)W/RAMOS BILAT IMPRESSION: Stable bilateral screening mammogram. Yearly follow-up mammogram recommended. (A) ASSESSMENT CATEGORY: BIRADS Category 2: Benign. A letter regarding these results will be sent to the patient by the facility within 30 days. Approximately 10% of breast cancers are not detected by mammography. A normal mammogram should not delay biopsy of a clinically suspicious abnormality. [id number] Electronically Signed: Elliot Root MD at 12:48 EST ,
--- OUTSIDE RECORDS SUMMARY | 2023-09-19 12:43 | XMS RPT_ITS | CCD ---
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 Role Phone Maryjane Pedroza S Primary Care Provider JOHN WORLEY Referring Unavailable JOHN WORLEY Attending Unavailable JOLLIFF, MARYJANE Primary Care Unavailable JOHN WORLEY Attending Unavailable JOLLIFF, MARYJANE Primary Care Unavailable Jolliff, Maryjane S Primary Care Provider Jolliff, Maryjane Tyler Primary Care Provider [phone] JOLLIFF, MARYJANE TYLER Primary Care Unavailable MILLIE CALLAHAN Referring Unavailable Jolliff, Maryjane Tyler Primary Care Provider [phone] MILLIE CALLAHAN Attending Unavailable JOLLIFF, MARYJANE TYLER Primary Care Unavailable MILLIE CALLAHAN Referring Unavailable JOLLIFF, MARYJANE TYLER Primary Care Unavailable MILLIE CALLAHAN Attending Unavailable SUBHA NIETO Referring Unavailable JOLLIFF, MARYJANE TYLER Primary Care Unavailable TESTRAKESILVESTRE Referring Unavailable JOLLIFF, MARYJANE TYLER Primary Care Unavailable TESTSILVESTRE REAVES Attending Unavailable SELF Referring Unavailable JOLLIFF, MARYJANE TYLER Primary Care Unavailable MILLIE CALLAHAN Referring Unavailable JOLLIFF, MARYJANE TYLER Primary Care Unavailable MILLIE CALLAHAN Referring Unavailable JOLLIFF, MARYJANE TYLER Primary Care Unavailable Allergies Allergy Classification Reported Allergen(s) Allergy Type Date of Onset Reaction(s) Facility (1 source) Sulfonamides (Antibiotic) Propensity to adverse reactions to drug 0 [place], [place] (12 sources) Iohexol; Translations: [IOHEXOL] Drug Allergy 9 [facility] (15 sources) Sulfonamides (Antibiotic); Translations: [SULFA (SULFONAMIDE ANTIBIOTICS)] Drug Allergy 0 Other: See Comments [facility] (3 sources) [facility]ol [facility] Medications Current Medications Medication Drug Class(es) Dates Sig (Normalized) Sig (Original) ALPRAZolam 0.25 mg disintegrating oral tablet (1 source) Benzodiazepine Start: 09-01-2020 ALPRAZolam (NIRAVAM) dissolvable tablet 0.25 mg amLODIPine 5 mg oral tablet (14 sources) Dihydropyridine Calcium Channel Rosales Start: 09-24-2022 take 1 tablet by mouth once daily amLODIPine (Norvasc) 5 MG tablet Take 5 mg by mouth Nightly. 0 09/24/2022 Active Completed/Discontinued Medications Medication Drug Class(es) Dates Sig (Normalized) Sig (Original) acetaminophen 500 mg oral tablet (1 source) Start: 09-01-2020 End: 09-01-2020 acetaminophen (TYLENOL) tablet 1,000 mg Problems Active Problems Problem Classification Problem Date Documented Da te Episodic/Chronic Cancer of uterus (5 sources) Malignant neoplasm of endometrium of corpus uteri ; Translations: [Malignant neoplasm of endometrium] Onset: 09-01-2020 09-01-2020 Chronic Cardiac dysrhythmias (5 sources) Palpitations; Translations: [Palpitations] Onset: 02-03-2023 Episodic Essential hypertension (10 sources) Hypertensive disorder; Translations: [Essential (primary) hypertension] Onset: 01-24-2013 Chronic Nonspecific chest pain (5 sources) Chest pain; Translations: [Chest pain, unspecified] Onset: 02-03-2023 Episodic Osteoporosis (15 sources) Senile osteoporosis; Translations: [Age-related osteoporosis without current pathological fracture] Onset: 06-20-2022 Chronic Other and unspecified benign neoplasm (1 source) Neuroma; Translations: [Benign neoplasm of peripheral nerves and autonomic nervous system, unspecified] 03-06-2023 Episodic Other connective tissue disease (2 sources) Pain in left foot; Translations: [Pain in left foot] Episodic Other connective tissue disease (1 source) Pain in left foot; Translations: [Pain in left foot] Onset: 03-06-2023 Episodic Other connective tissue disease (1 source) Foot pain Onset: 03-06-2023 Episodic Residual codes; unclassified (2 sources) H/O: hysterectomy; Translations: [S/P hysterectomy] Onset: 09-01-2020 09-01-2020 Episodic Past or Other Problems Problem Classification Problem Date Documented Da te Episodic/Chronic Intestinal infection (10 sources) Clostridium difficile colitis; Translations: [Enterocolitis due to Clostridium difficile, not specified as recurrent] Onset: 01-24-2013 Episodic Other injuries and conditions due to external causes (12 sources) Fracture of bone; Translations: [Unspecified multiple injuries, initial encounter] Onset: 05-04-2022 Episodic Other injuries and conditions due to external causes (1 source) Unspecified multiple injuries, initial encounter; Translations: [Fractures] Onset: 05-04-2022 Episodic Results Test Name Value Interpretation Reference Range Facil ity Vital Signs Date Time Vital Sign Value Performing Clinician Faci lity 02-03-2023 09:17-0400 Body height 157.5 cm John Worley MD Work Phone: [facility] 02-03-2023 09:17-0400 Body mass index (BMI) [Ratio] 34.93 kg/m2 John Worley MD Work Phone: [facility] 02-03-2023 09:17-0400 Body weight 86.64 kg John Worley MD Work Phone: [facility] 01-09-2023 15:44-0400 Body height 157.5 cm John Worley MD Work Phone: [facility] 01-09-2023 15:44-0400 Body mass index (BMI) [Ratio] 34.93 kg/m2 John Worley MD Work Phone: [facility] 01-09-2023 15:44-0400 Body weight 86.64 kg John Worley MD Work Phone: [facility] 01-09-2023 15:44-0400 Diastolic blood pressure 96 mm[Hg] John Worley MD Work Phone: [facility] 01-09-2023 15:44-0400 Heart rate 78 /min John Worley MD Work Phone: [facility] 01-09-2023 15:44-0400 SaO2% (BldA) [Mass fraction] 98 % John Worley MD Work Phone: [facility] 01-09-2023 15:44-0400 Systolic blood pressure 156 mm[Hg] John Worley MD Work Phone: [facility] 05-04-2022 11:00-0400 Body height 157.4 cm Millie Callahan MD Work Phone: [facility] 05-04-2022 11:00-0400 Body weight 82.24 kg Millie Callahan MD Work Phone: [facility] 05-04-2022 11:00-0400 Diastolic blood pressure 81 mm[Hg] Millie Callhaan MD Work Phone: [facility] 05-04-2022 11:00-0400 Heart rate 65 /min Millie Callahan MD Work Phone: [facility] 05-04-2022 11:00-0400 Systolic blood pressure 159 mm[Hg] Millie Callahan MD Work Phone: [facility] 09-01-2020 17:15-0500 BP Diastolic 70 mm[Hg] [place], [place] 09-01-2020 17:15-0500 BP Systolic 121 mm[Hg] [place], [place] 09-01-2020 17:15-0500 Pulse (Heart Rate) 72 /min [place], [place] 09-01-2020 17:15-0500 Pulse Oximetry 93 % [place], [place] 09-01-2020 17:15-0500 Respiratory Rate 14 /min [place] 09-01-2020 12:35-0500 Body Temperature 97 [degF] [place] Encounters Encounter Date Encounter Type Care Provider Facility Start: 03-29-2023 Orders Only Millie Jacobs ms, MD Work Phone: Endocrinology Procedures Date Procedure Procedure Detail Performing Clinician Start: 03-06-2023 Radex foot complete minimum 3 views Silvestre De La Torre Work Phone: Start: 02-03-2023 Cv strs tst xers&/or rx cont ecg trcg only John Worley MD Work Phone: Start: 01-09-2023 Ecg routine ecg w/le ast 12 lds w/i&r John Worley MD Work Phone: Start: 05-18-2022 Mammography John stoevr MD Work Phone: Start: 09-01-2020 OPERATIVE REPORT 3m Sca nning Start: 09-01-2020 H/O: hysterectomy S/P hysterectomy R jemima Worley MD Work Phone: Start: 09-01-2020 Blood count hemoglobin Roberto Sauravdeirdrecoleman Work Phone: Start: 09-01-2020 Blood typing serologic abo Roberto Guerreroalida Work Phone: Start: 09-01-2020 Ecg routine ecg w/le ast 12 lds w/i&r Roberto Elizabeth Work Phone: Plan of Treatment Date Care Activity Detail Author Start: 08-05-2025 DIABETES SCREEN DIABETES SCREEN [facility] Start: 08-05-2025 Diabetes Screening Diabetes Screening [facility] Start: 05-04-2025 DIABETES SCREEN DIABETES SCREEN [facility] Start: 05-18-2023 Screening for malignant neoplasm of breast Mammogram [facility] Start: 04-28-2023 Covid-19 Vaccine ( season) Covid-19 Vaccine () [facility] Start: 04-28-2023 Influenza vaccination [facility] Start: 04-17-2023 End: 04-17-2023 Patient encounter procedure [facility] Start: 01-26-2023 End: 03-28-2023 25-hydroxyvitamin D3 [Mass/volume] in Serum or Plasma VITAMIN D 25 HYDROXY Lab Routine Age-related osteoporosis without current pathological fracture Expected: 01/26/2023, Expires: 03/28/2023 [facility] Work Phone: Payers Date Payer Category Payer Unknown [id number] 2021 Unknown [id number] 2020 Unknown [employer] [address] [id number] 2020-Present [phone] [address] [place] [address] [id number] Social History Date Type Detail Facility Start: 09-01-2020 End: 05-04-2022 Tobacco smoking status NHIS Never smoker [facility] Start: 09-01-2020 End: 05-04-2022 [facility] and [facility] Start[facility] 1960 [facility] Start: 04-10-2022 End: 02-03-2023 Exposure to SARS-CoV-2 (event) [facility] sure [facility] Start: 05-04-2022 End: 03-06-2023 Alcohol intake Current drinker of alcohol (finding) [facility] Start: 01-24-2013 History SDOH Alcohol Comment occ [facility] Start: 01-09-2023 Alcohol Comment occasional [facility] Start: 01-09-2023 End: 03-06-2023 History of Social function [facility] Start: 01-09-2023 End: 03-06-2023 Tobacco use panel [facility] PHQ2 Score 0 [facility] Clinical Notes 05-04-2022 to 03-06-2023 Shanda Ocampo LPN - 03/06/2023 4:27 PM Silvestre Reyes - 03/06/2023 3:58 PM Mckenzie Rojas RN - 03/06/2023 3:49 PM EDTPatient Kb Worley MD - 01/09/2023 3:20 PM EDT Note Date & Type Note Facility 03-06-2023 Note HNO ID: [id number] Author: Shanda Ocampo LPN Service: ? Author Type: LICENSED NURSE Type: Progress Notes Filed: 03/06/2023 10:22 PM Note Text: Per Dr. De La Torre, Lui was provided with powerstep gel inserts, size 7, and instructed/educated in its application, wear, and care. All questions were answered, and patient was able to demonstrate competence with the necessary skills to utilize the above equipment. Shanda Ocampo LPN [facility] 03-06-2023 Note HNO ID: [id number] Author: Silvestre De La Torre Service: ? Author Type: Physician Type: Progress Notes Filed: 03/06/2023 10:22 PM Note Text: Initial Podiatric Office Visit: Chief Complaint: This 62 year old female who presents with chief complaint:left foot pain HPI Patient presents to clinic for evaluation of left foot. She currently has pain to the left 3rd interspace. The pain has been off/on for the past 3 years. The pain has not been horrible. She was diagnosed with neuroma [address] Astorga via mri. Patient was scheduled for surgery but a friend told her to get a second opinion. She saw an orthopedist at the [facility] who said the neuroma was not the issue. Patient was told she needed shortening osteotomy. Patient decided that she was not interested in orthotpedic surgery. She states the pain in the past wasn't horrible so she was monitoring. She states the pain now is getting more severe so she has elected to get this evaluated. PAIN EVALUATION 03/03/2023 0058 03/06/2023 1550 Pain Level: 5 6 Pain Location: Foot-Left -- Description: Aching;Pressure;Shooting -- Duration Amount of Time: 12 -- Duration Units: Weeks -- Frequency: Continuous -- Intervention/Comfort measure: Reposition;Relaxation -- No results found for: HBA1C PCP: Maryjane Pedroza MD PAST MEDICAL HISTORY Diagnosis Date Hyperlipemia Hypertension Current Outpatient Medications Medication Sig magnesium carb,citrate,oxide (MAGNESIUM COMPLEX ORAL) Take 1 tablet by mouth once daily. calcium citrate/vitamin D3 (CITRACAL + D ORAL) Take 1 tablet by mouth once daily. rosuvastatin (CRESTOR) 10 mg tablet Take 1 tablet by mouth once daily. meloxicam (MOBIC) 15 mg tablet Take 15 mg by mouth as needed. ibuprofen (MOTRIN) 800 mg tablet Take 1 tablet by mouth every 8 hours as needed for Pain. amLODIPine (NORVASC) 5 mg tablet Take 5 mg by mouth once daily. Flaxseed Oil Oil cyclobenzaprine (FLEXERIL) 10 mg tablet Take 1 tablet by mouth every 8 hours as needed for Muscle Spasm (or pain). (Patient not taking: Reported on 03/06/2023) lidocaine (LIDODERM) 5 % Apply 1 Patch as directed every 24 hours. (Patient not taking: Reported on 03/06/2023) traMADol 50 mg tablet Take 0.5 tablets by mouth every 8 hours as needed for Pain. omega-3 acid ethyl esters (LOVAZA) 1 gram capsule Take 2 g by mouth once daily. (Patient not taking: Reported on 03/06/2023) Current Facility-Administered Medications Medication Dose Route Frequency denosumab 60 mg injection (PROLIA) 60 mg SUBCUTANEOUS As Directed ALLERGIES Allergen Reactions Sulfa (Sulfonamide * Other: See Comments Ringing in ears Omnipaque [Iohexol] Hives PT HAD HIVES AFTER PRIOR SCAN. WAS PRE MEDICATED ON 05/06/19 AND DID FINE PAST SURGICAL HISTORY Procedure Laterality Date TONSILLECTOMY HX FAMILY HISTORY Problem Relation Age of Onset Stroke Mother 71 Social History Tobacco Use Smoking status: Never Smokeless tobacco: Never Vaping Use Vaping Use: Never used Substance Use Topics Alcohol use: Yes Comment: occ Drug use: No REVIEW OF SYSTEMS GENERAL: Negative for Malaise, significant weight loss, fever RESPIRATORY: Negative for cough, wheezing and shortness of breath CARDIOVASCULAR: Negative for chest pain, leg swelling and palpitations GI: Negative for abdominal discomfort, blood in stools or black stools and change in bowel habits : Negative for dysuria, frequency and incontinence MUSCULOSKELETAL: Negative for joint pain or swelling, back pain, and muscle pain. SKIN: Negative for lesions, rash, and itching. HEMATOLOGY/LYMPHOLOGY Negative for prolonged bleeding, bruising easily, and swollen nodes. ENDOCRINE: Negative for cold or heat intolerance, polyuria, polydipsia and goiter. NEURO: negative Physical Exam: Constitutional: Pt is a well developed 62 year old female who is alert, oriented and cooperative Eyes: Following during examination. No redness or drainage. Respiratory: RR normal and nonlabored. Even breathing. No evidence of distress or shortness of breath. Psychology: Patient is engaged during conversation. Normal affect and mood. Does not appear depressed or anxious during encounter. Vascular: Dorsalis pedis and posterior tibial pulses palpable as b/l Capillary Fill time < 5 seconds to digits 1-5 b/l Skin temperature warm to warm proximal to distal b/l Hair growth present to digits Neurological: intact light touch/epicritic sensation b/l intact protective sensation no significant neurological deficits Dermatological: Nails 1-5 b/l appear normal. Webspaces clean and dry 1-4 b/l. Skin appears well hydrated and supple. good color, texture, turgor. No open lesions present. No callosities present. Musculoskeletal/Orthopaedic: Patient has pain to palpation of left 2nd and 3rd interspace No obvious aries sign noted. Foot type is neutral structurally AJ ROM is full with knee e (more content not included)... [facility] 03-06-2023 Note HNO ID: [id number] Author: Mckenzie Baum RN Service: ? Author Type: Registered Nurse Type: Progress Notes Filed: 03/06/2023 10:22 PM Note Text: AMB ROOMING INTAKE FLOWSHEET DATA Pain Pain Level: 6 Pain Location: Foot-Left Description: Aching, Pressure, Shooting Duration Amount of Time: 12 Duration Units: Weeks Frequency: Continuous Intervention/Comfort measure: Reposition, Relaxation Patient presents with: Left Foot - New, Pain Patient presents for left foot pain that has been ongoing for the last 3 years but has gotten worse. 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 Pain to to the ball of her foot. Feels like stepping on a marble. [facility] 03-06-2023 Note HNO ID: [id number] Author: RT Ranulfo(R) Service: ? Author Type: Counter Former Type: Progress Notes Filed: 03/06/2023 3:49 PM Note Text: Radiology Service Progress Note PATIENT NAME: Lui Cabrera DATE OF SERVICE: March 06, 2023 TIME: 3:37 PM PATIENT IDENTITY VERIFICATION COMPLETED USING TWO (2) IDENTIFIERS: Name and Date of confirmed by patient verbally. FALL SCREENING: Has the patient had 2 falls in the last year or 1 fall with injury or currently using an Ambulatory Assistive Device (Walker, Cane, Wheelchair, Crutches, etc.)? No PATIENT GENDER DATA: Female. status: : No status: NO. PATIENT RELEVANT IMPLANT DATA REVIEWED: Yes RADIOLOGY DEPARTMENT: General X-ray: Exam(s) Completed: Lower Extremity X-Ray(s): Foot, Left PERIPHERAL IV DATA: Not applicable SIGNED BY: RT Ranulfo(R) March 06, 2023 3:37 PM [facility] 03-06-2023 History of Present illness Narrative Per Dr. De La Torre Lui was provided with powerstep gel inserts, size 7, and instructed/educated in its application, wear, and care. All questions were answered, and patient was able to demonstrate competence with the necessary skills to utilize the above equipment. Shanda Ocampo LPN Images from the original note were not included. Initial Podiatric Office Visit: Chief Complaint: This 62 year old female who presents with chief complaint:left foot pain HPI Patient presents to clinic for evaluation of left foot. She currently has pain to the left 3rd interspace. The pain has been off/on for the past 3 years. The pain has not been horrible. She was diagnosed with neuroma [address] Astorga via mri. Patient was scheduled for surgery but a friend told her to get a second opinion. She saw an orthopedist at the [facility] who said the neuroma was not the issue. Patient was told she needed shortening osteotomy. Patient decided that she was not interested in orthotpedic surgery. She states the pain in the past wasn't horrible so she was monitoring. She states the pain now is getting more severe so she has elected to get this evaluated. PAIN EVALUATION 03/03/2023 0058 03/06/2023 1550 Pain Level: 5 6 Pain Location: Foot-Left -- Description: Aching;Pressure;Shooting -- Duration Amount of Time: 12 -- Duration Units: Weeks -- Frequency: Continuous -- Intervention/Comfort measure: Reposition;Relaxation -- No results found for: HBA1C PCP: Maryjane Pedroza MD PAST MEDICAL HISTORY Diagnosis Date Hyperlipemia Hypertension Current Outpatient Medications Medication Sig magnesium carb,citrate,oxide (MAGNESIUM COMPLEX ORAL) Take 1 tablet by mouth once daily. calcium citrate/vitamin D3 (CITRACAL + D ORAL) Take 1 tablet by mouth once daily. rosuvastatin (CRESTOR) 10 mg tablet Take 1 tablet by mouth once daily. meloxicam (MOBIC) 15 mg tablet Take 15 mg by mouth as needed. ibuprofen (MOTRIN) 800 mg tablet Take 1 tablet by mouth every 8 hours as needed for Pain. amLODIPine (NORVASC) 5 mg tablet Take 5 mg by mouth once daily. Flaxseed Oil Oil cyclobenzaprine (FLEXERIL) 10 mg tablet Take 1 tablet by mouth every 8 hours as needed for Muscle Spasm (or pain). (Patient not taking: Reported on 03/06/2023) lidocaine (LIDODERM) 5 % Apply 1 Patch as directed every 24 hours. (Patient not taking: Reported on 03/06/2023) traMADol 50 mg tablet Take 0.5 tablets by mouth every 8 hours as needed for Pain. omega-3 acid ethyl esters (LOVAZA) 1 gram capsule Take 2 g by mouth once daily. (Patient not taking: Reported on 03/06/2023) Current Facility-Administered Medications Medication Dose Route Frequency denosumab 60 mg injection (PROLIA) 60 mg SUBCUTANEOUS As Directed ALLERGIES Allergen Reactions Sulfa (Sulfonamide * Other: See Comments Ringing in ears Omnipaque [Iohexol] Hives PT HAD HIVES AFTER PRIOR SCAN. WAS PRE MEDICATED ON 05/06/19 AND DID FINE PAST SURGICAL HISTORY Procedure Laterality Date TONSILLECTOMY HX FAMILY HISTORY Problem Relation Age of Onset Stroke Mother 71 Social History Tobacco Use Smoking status: Never Smokeless tobacco: Never Vaping Use Vaping Use: Never used Substance Use Topics Alcohol use: Yes Comment: occ Drug use: No REVIEW OF SYSTEMS GENERAL: Negative for Malaise, significant weight loss, fever RESPIRATORY: Negative for cough, wheezing and shortness of breath CARDIOVASCULAR: Negative for chest pain, leg swelling and palpitations GI: Negative for abdominal discomfort, blood in stools or black stools and change in bowel habits : Negative for dysuria, frequency and incontinence MUSCULOSKELETAL: Negative for joint pain or swelling, back pain, and muscle pain. SKIN: Negative for lesions, rash, and itching. HEMATOLOGY/LYMPHOLOGY Negative for prolonged bleeding, bruising easily, and swollen nodes. ENDOCRINE: Negative for cold or heat intolerance, polyuria, polydipsia and goiter. NEURO: negative Physical Exam: Constitutional: Pt is a well developed 62 year old female who is alert, oriented and cooperative Eyes: Following during examination. No redness or drainage. Respiratory: RR normal and nonlabored. Even breathing. No evidence of distress or shortness of breath. Psychology: Patient is engaged during conversation. Normal affect and mood. Does not appear depressed or anxious during encounter. Vascular: Dorsalis pedis and posterior tibial pulses palpable as b/l Capillary Fill time < 5 seconds to digits 1-5 b/l Skin temperature warm to warm proximal to distal b/l Hair growth present to digits Neurological: intact light touch/epicritic sensation b/l intact protective sensation no significant neurological deficits Dermatological: Nails 1-5 b/l appear normal. Webspaces clean and dry 1-4 b/l. Skin appears well hydrated and supple. good color, texture, turgor. No open lesions present. No callosities present. Musculoskeletal/Orthopaedic: Patient has pain to palpation of left 2nd and 3rd interspace No obvious aries sign noted. Foot type is neutral structurally AJ ROM is full with knee extended and flexed 1st MPJ is full when loaded and no pain or crepitus are noted with ROM. MTJ, STJ are full and free of pain and crepitus. +5/5 muscle strength dorsiflexion, plantarflexion, inversion, eversion b/l Radiographs: 3 views left foot ordered March 06, 2023: I have personally reviewed and interpreted these XR myself: no acute fracture is noted. Prior mri from 2019 reviewed. + neuroma of left 3rd interspace ASSESSMENT: (D36.10) Neuroma (primary encounter diagnosis) PLAN: 1. History and physical examination performed. 2. XR reviewed with patient and interpreted today 3. Reviewed prior mri. She has neuroma of left 3rd interspace. More pain however in left 2nd interspace 4. Discussed options not limited to gel inserts, possible steroid injection, follow-up ultrasound vs mri vs surgical intervention. 5. Patient will try gel inserts. If pain worsnes, consider steroid injection Silvestre De La Torre DPM Podiatry [address] [facility] [address] Dept: [phone] Dept AMB ROOMING INTAKE FLOWSHEET DATA Pain Pain Level: 6 Pain Location: Foot-Left Description: Aching, Pressure, Shooting Duration Amount of Time: 12 Duration Units: Weeks Frequency: Continuous Intervention/Comfort measure: Reposition, Relaxation Patient presents with: Left Foot - New, Pain Patient presents for left foot pain that has been ongoing for the last 3 years but has gotten worse. 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 Pain to to the ball of her foot. Feels like stepping on a marble. documented in this encounter [facility] 03-06-2023 Instructions Silvestre De La Torre - 03/06/2023 4:22 PM EDT Powerstep Original Full length. Can purchase at [employer] here in [place], [employer] in [place] or [place]. Also can find in [employer] in [facility]. Powersteps can also be purchased online, starting around $45.00 If you have a metatarsal or dancer pad for your feet apply the pad directly to the insole so you can interchange between your shoes. Find a shoe with a removable insole and take this out and replace with your powerstep insole. Always bring powersteps with you when shopping for shoes so that you can make sure that everything fits well together documented in this encounter [facility] 02-13-2023 Miscellaneous Notes Candice, Patient had lab work done from primary doctor which Calcium was 8.7, vit D is WNL. Please let us know how to proceed regardig patient's Prolia injection on 02/22/2023. Vitamin D 25 Hydroxy (ng/mL) Date Value 02/09/2023 31.6 Thanks, GHAZAL Villegas RN [facility] documented in this encounter [facility] 02-03-2023 Miscellaneous Notes Good news, keep exercising, checking blood pressure and taking statin documented in this encounter [facility] 02-03-2023 Progress note Formatting of t his note might be different from the original. Good news, keep exercising, checking blood pressure and taking statin [facility] 01-09-2023 History of Present illness Narrative Images from the original note were not included. [facility] [address] [facility] [address] Dept: [phone] Dept Loc: [phone] DATE of SERVICE:01/09/23 TIME of SERVICE: 4:05 PM : 1960 Chief Complaint: Chief Complaint Patient presents with New Patient Self-referral; Familial H/o heart disease Chest Pain Palpitations Shortness of Breath History of PresentIllness: Lui Cabrera is a 62 y.o. female here as a new patient. She has no known cardiovascular disease. She does have hypertension and hyperlipidemia. She had a [facility] blood flow screening test done November 18, 2022. Her right ankle-brachial index was 1.1, left 1.1, blood pressure 140/90 in the right arm and 150/92 in the left. She had mild to moderate disease in the carotid artery without hemodynamically significant flow disturbance. Her hemoglobin A1c was 5.9, cholesterol 312, HDL 47, LDL 224 without regular use of her rosuvastatin. Symptomatically, she has some exertional dyspnea. However, she has been limiting herself because she has had 3 recent lumbar compression fractures. She has known osteoporosis. She is being treated for that. In March of last year she had an episode where she felt quite faint. She had some pain in the left arm and left jaw pain. That whole episode lasted about a minute. Otherwise, she has had some lower extremity edema, that was worse with 10 mg of amlodipine. Past Medical History: Past Medical History: Diagnosis Date Anxiety Basal cell carcinoma nose with removal Endometrial cancer (CMS/HCC) (HCC) Hyperlipidemia Hypertension IRASEMA (obstructive sleep apnea) uses cpap Osteoporosis Past Surgical History Past Surgical History: Procedure Laterality Date NOSE SURGERY TONSILLECTOMY (HISTORICAL) TOTAL ABDOMINAL HYSTERECTOMY W/ BILATERAL SALPINGOOPHORECTOMY 09/01/2020 bilateral pelvic lymph node dissection; Dr. Edward LOPEZ Family History Family History Problem Relation Name Age of Onset Diabetes Mother Other ([address]) Mother lymphoma Social History Social History Tobacco Use Smoking status: Never Smokeless tobacco: Never Substance Use Topics Alcohol use: Yes Comment: occasional Drug use: Never Allergies: Allergies Allergen Reactions Iohexol Hives PT HAD HIVES AFTER PRIOR SCAN. WAS PRE MEDICATED ON 05/06/19 AND DID FINE Sulfa Antibiotics Other reaction(s): other, Other: See Comments, Other: See Comments Ringing in ears Ringing in ears Medications: Current Outpatient Medications: amLODIPine (Norvasc) 5 MG tablet, Take 5 mg by mouth Nightly., Disp: , Rfl: Cholecalciferol (Vitamin D) 125 MCG (5000 UT) capsule, Take by mouth., Disp: , Rfl: denosumab (Prolia) 60 MG/ML solution prefilled syringe, , Disp: , Rfl: meloxicam (Mobic) 15 MG tablet, Take 15 mg by mouth Daily as needed., Disp: , Rfl: Multiple Vitamin (MULTIVITAMIN ADULT PO), Take by mouth., Disp: , Rfl: omega-3 (fish oil) 1360 MG capsule, Take by mouth., Disp: , Rfl: rosuvastatin (Crestor) 10 MG tablet, Take 10 mg by mouth Nightly., Disp: , Rfl: Review of Systems: Review of Systems Constitutional: Positive for fatigue. Negative for activity change, chills, diaphoresis and fever. HENT: Negative for nosebleeds and trouble swallowing. Eyes: Negative for discharge and visual disturbance. Respiratory: Positive for shortness of breath (occasional). Negative for apnea, cough, chest tightness and wheezing. Cardiovascular: Positive for chest pain and leg swelling. Negative for palpitations. Gastrointestinal: Negative for abdominal distention, abdominal pain, blood in stool, diarrhea, nausea and vomiting. Endocrine: Negative for cold intolerance and heat intolerance. Genitourinary: Negative for hematuria. Musculoskeletal: Negative for gait problem and myalgias. Skin: Negative for color change and rash. Neurological: Positive for light-headedness (positional). Negative for dizziness, seizures, syncope, facial asymmetry, speech difficulty, weakness, numbness and headaches. Hematological: Does not bruise/bleed easily. Psychiatric/Behavioral: Negative for dysphoric mood. Physical Examination: Vitals: Vitals: 01/09/23 1544 BP: (!) 156/96 BP Location: Right arm Patient Position: Sitting Pulse: 78 SpO2: 98% Weight: 191 lb (86.6 kg) Height: 5' 2 (1.575 m) Body mass index is 34.93 kg/m . Physical Exam She appears well. She has no jugular venous distention. Her lungs are clear. Her heart sounds are normal. Palpation of her abdomen is normal. Her posterior tibial pulses are normal. She has trivial pretibial edema. Laboratory Tests: Lab Results Component Value Date HGB 14.6 09/01/2020 No results found for: GLUCOSE, CALCIUM, NA, K, CO2, CL, BUN, CREATININE @LASTCMP@ No results found for: CHLPL, CHOL No results found for: TRIG No results found for: HDL No results found for: LDLCALC, LDLDIRECT No components found for: LVEF, LVEFMODE Assessment and Plan: @DIAGREFRESH@ Medical decision making My assessment is that she does have vascular disease, hypertension, and hyperlipidemia. However, I think the vascular disease is probably mild to moderate and not critical. Given the symptoms that she had last March, there is some concern over her coronary disease. Her blood pressure is not at goal and her lipids are not at goal. Diagnostically, I ordered a simple stress test. Therapeutically, I added combination losartan hydrochlorothiazide 50 mg / 12.5 mg and increase to rosuvastatin to 40 mg, starting every other day to see if she can tolerate taking it every other day. She has had some myalgias related to 10 mg every day. I also want to get her started on an exercise program. Of asked her to exercise 30 minutes 6 days a week. She will start a very low. If she has some leg pain and low back pain related to her compression fractures associated with walking, vascular to use a stationary bicycle. The exercise is critical. Provided she does not have a high risk stress test, we will push on with medical therapy, getting her blood pressure under 130/80 and her LDL cholesterol at least less than 100, preferably less than 70. We may need a PCSK9 inhibitor to do that. We will work on all those goals over the next 3 months. She will start taking her blood pressure daily at home and we will make adjustments accordingly documented in this encounter [facility] 08-24-2022 Miscellaneous Notes Patient would like to be scheduled for next prolia injection on January at 2:30pm. Will need new PA/referral, please attach to appointment. Dr. Callahan- pended labs for next injection, can you please sign. Thanks Oxana Serra RN [facility] documented in this encounter [facility] 06-20-2022 Note HNO ID: [id number] Author: Millie Callahan MD Service: ? Author Type: Physician Type: Progress Notes Filed: 06/20/2022 4:18 PM Note Text: ENDOCRINE CALCIUM CLINIC LAST VISIT 05-04-2022 RE: osteoporosis I will communicate my recommendations and findings via shared medical record and/or USPS CC: spine fractures HPI: Lui Cabrera is a 62 year old female from [place], [place] who initially presented 05-04-2022 in referral for my expert opinion regarding spine fractures. - started on Fosamax but developed flu like symptoms - took 4 doses before stopping the drug - drinks some milk, takes a chewable calcium -- dose is unknown -Viactiv - D3 -- dose is unknown - multivitamin from a [employer] - zinc occasionally ------- FOLLOW UP VISIT 06-20-2022 VIRTUALLY: presents in follow up to review results and discuss plan of care. - there is a question from one of her physicians whether there had been additional fx -- no new image reports available REVIEW OF SYSTEMS GENERAL: wt is trending upwards HEENT: vision is good ENDO/NECK: Denies jaw pain, no difficulty swallowing;no dental issues CARDIOVASCULAR: HTN only GI: denies : none NEPHROLITHIASIS:none ENDO/RESIDENT SERVICES MANAGER: Menopause at age 53, no HRT ENDO/MUSCULOSKELETAL/BONE: back- lower; hurts all the time but is low grade FRACTURES: spine, no other fractures SKIN: PSYCH: HEMATOLOGY/LYMPHOLOGY none NEURO: Risk Factors for Osteoporosis and Fracture: Personal history of fracture since age 41, First degree relative with fracture, (mother) and Postmenopausal MEDICAL HISTORY: PAST MEDICAL HISTORY Diagnosis Date Hyperlipemia Hypertension SURGICAL HISTORY: PAST SURGICAL HISTORY Procedure Laterality Date TONSILLECTOMY HX FAMILY HISTORY: Family History Problem Relation Age of Onset Stroke Mother 71 SOCIAL HISTORY: Social History Marital status: Spouse name: Years of education: Number of children: Social History Main Topics Drug use: Unknown DXA:v -- requested images 2x -- still waiting MRI: LABS: Component Latest Ref Rng AND Units 05/04/2022 Protein, Total 6.3 - 8.0 g/dL 7.4 Albumin 3.9 - 4.9 g/dL 4.7 Calcium 8.5 - 10.2 mg/dL 9.8 Bilirubin, Total 0.2 - 1.3 mg/dL 0.4 Alkaline Phosphatase 34 - 123 U/L 124 (H) AST 13 - 35 U/L 22 ALT 7 - 38 U/L 16 Glucose 74 - 99 mg/dL 103 (H) BUN 7 - 21 mg/dL 11 Creatinine 0.58 - 0.96 mg/dL 0.91 Sodium 136 - 144 mmol/L 139 Potassium 3.7 - 5.1 mmol/L 4.5 Chloride 97 - 105 mmol/L 103 CO2 22 - 30 mmol/L 27 Anion Gap 9 - 18 mmol/L 9 eGFR >=60 mL/min/1.73mA? 72 Iron 41 - 186 ug/dL 78 TIBC 232 - 386 ug/dL 367 Transferrin Saturation 15.0 - 57.0 % 21.3 Normalized CAlcium 1.08 - 1.30 mmol/L 1.24 Ionized Calcium 1.08 - 1.30 mmol/L 1.27 Vitamin D 25 Hydroxy 31.0 - 80.0 ng/mL 24.6 (L) Vit D1,25 Dihydroxy 19.9 - 79.3 pg/mL 67.6 Magnesium 1.7 - 2.3 mg/dL 2.0 Phosphorus 2.7 - 4.8 mg/dL 3.3 PTH, Intact 15 - 65 pg/mL 64 Alk Phosphatase, Bone ug/L 19.1 Current Medications Current Outpatient Medications on File Prior to Visit Medication Sig ibuprofen (MOTRIN) 800 mg tablet Take 1 tablet by mouth every 8 hours as needed for Pain. cyclobenzaprine (FLEXERIL) 10 mg tablet Take 1 tablet by mouth every 8 hours as needed for Muscle Spasm (or pain). lidocaine (LIDODERM) 5 % Apply 1 Patch as directed every 24 hours. traMADol 50 mg tablet Take 0.5 tablets by mouth every 8 hours as needed for Pain. (Patient not taking: Reported on 11/09/2018 ) amLODIPine (NORVASC) 5 mg tablet Take 5 mg by mouth once daily. omega-3 acid ethyl esters (LOVAZA) 1 gram capsule Take 2 g by mouth once daily. Flaxseed Oil Oil No current facility-administered medications on file prior to visit. PHYSICAL EXAMINATION: [facility] 12/30/2012 VIRTUALLY General appearance: well appearing, alert, and in no acute distress Head: normal HISTORICALLY Eyes: Anicteric sclera. Pupils are equally round and reactive to light. Extraocular movements are intact. Skin: skin color, texture, turgor normal, Neck: Supple, no adenopathy; thyroid symmetric, normal size, no bruits Heart: RRR Lungs: CTAB Abdomen: central obesity Back: no pain to palpation over spine or costovertebral angles -Shoulder height position: normal -Pelvic Tilt: -Dorsal kyphosis: none -Lumbar curve: present -Scoliosis: -Movement: Normal upon exam Extremities: Extremities normal. Musculoskeletal: Spine range of motion normal. Muscular strength intact Neuro: Gait normal. Reflexes 2+, normal and symmetric. Sensation grossly intact. ASSESSMENT AND PLAN 2. Age-related osteoporosis without current pathological fracture - ICD9: 733.01, ICD10: M81.0 - notable for L-4 compression - recommended either Reclast or prolia - she has chosen prolia (more content not included)... [facility] 06-20-2022 Miscellaneous Notes Candice Pt. Wants to be scheduled for Prolia on June at 2:00 pm, can you please attach referral/PA to appt? Dr. Callahan-pt. Has labs from 05/04 which is exactly two months from injection, they are WNL but can we still use these labs? Glucose (mg/dL) Date Value 05/04/2022 103 05/06/2019 122 Potassium (mmol/L) Date Value 05/04/2022 4.5 05/06/2019 4.2 Sodium (mmol/L) Date Value 05/04/2022 139 05/06/2019 141 Chloride (mmol/L) Date Value 05/04/2022 103 05/06/2019 102 CO2 (mmol/L) Date Value 05/04/2022 27 05/06/2019 25 Creatinine (mg/dL) Date Value 05/04/2022 0.91 05/06/2019 0.78 BUN (mg/dL) Date Value 05/04/2022 11 05/06/2019 14 Anion Gap (mmol/L) Date Value 05/04/2022 9 05/06/2019 14 Calcium (mg/dL) Date Value 05/06/2019 9.5 Calcium, Total (mg/dL) Date Value 05/04/2022 9.8 Protein, Total (g/dL) Date Value 05/04/2022 7.4 05/06/2019 7.6 Albumin (g/dL) Date Value 05/04/2022 4.7 05/06/2019 4.6 Bilirubin, Total (mg/dL) Date Value 05/04/2022 0.4 05/06/2019 0.3 Alkaline Phosphatase (U/L) Date Value 05/04/2022 124 05/06/2019 122 AST (U/L) Date Value 05/04/2022 22 05/06/2019 17 ALT (U/L) Date Value 05/04/2022 16 05/06/2019 15 Vitamin D 25 Hydroxy (ng/mL) Date Value 05/04/2022 24.6 Thanks, GHAZAL Gutierrez RN [facility] documented in this encounter [facility] 06-20-2022 History of Present illness Narrative Images from the original note were not included. ENDOCRINE [facility]CIUM [facility]INIC LAST VISIT 05-04-2022 RE: osteoporosis I will communicate my recommendations and findings via shared medical record and/or USPS CC: spine fractures HPI: Lui Cabrera is a 62 year old female from [place], [place] who initially presented 05-04-2022 in referral for my expert opinion regarding spine fractures. - started on Fosamax but developed flu like symptoms - took 4 doses before stopping the drug - drinks some milk, takes a chewable calcium -- dose is unknown -Viactiv - D3 -- dose is unknown - multivitamin from a [employer] - zinc occasionally FOLLOW UP VISIT 06-20-2022 VIRTUALLY: presents in follow up to review results and discuss plan of care. - there is a question from one of her physicians whether there had been additional fx -- no new image reports available REVIEW OF SYSTEMS GENERAL: wt is trending upwards HEENT: vision is good ENDO/NECK: Denies jaw pain, no difficulty swallowing;no dental issues CARDIOVASCULAR: HTN only GI: denies : none NEPHROLITHIASIS:none ENDO/RESIDENT SERVICES MANAGER: Menopause at age 53, no HRT ENDO/MUSCULOSKELETAL/BONE: back- lower; hurts all the time but is low grade FRACTURES: spine, no other fractures SKIN: PSYCH: HEMATOLOGY/LYMPHOLOGY none NEURO: Risk Factors for Osteoporosis and Fracture: Personal history of fracture since age 41, First degree relative with fracture, (mother) and Postmenopausal MEDICAL HISTORY: PAST MEDICAL HISTORY Diagnosis Date Hyperlipemia Hypertension SURGICAL HISTORY: PAST SURGICAL HISTORY Procedure Laterality Date TONSILLECTOMY HX FAMILY HISTORY: Family History Problem Relation Age of Onset Stroke Mother 71 SOCIAL HISTORY: Social History Marital status: Spouse name: Years of education: Number of children: Social History Main Topics Drug use: Unknown DXA:v -- requested images 2x -- still waiting MRI: LABS: Component Latest Ref Rng & Units 05/04/2022 Protein, Total 6.3 - 8.0 g/dL 7.4 Albumin 3.9 - 4.9 g/dL 4.7 Calcium 8.5 - 10.2 mg/dL 9.8 Bilirubin, Total 0.2 - 1.3 mg/dL 0.4 Alkaline Phosphatase 34 - 123 U/L 124 (H) AST 13 - 35 U/L 22 ALT 7 - 38 U/L 16 Glucose 74 - 99 mg/dL 103 (H) BUN 7 - 21 mg/dL 11 Creatinine 0.58 - 0.96 mg/dL 0.91 Sodium 136 - 144 mmol/L 139 Potassium 3.7 - 5.1 mmol/L 4.5 Chloride 97 - 105 mmol/L 103 CO2 22 - 30 mmol/L 27 Anion Gap 9 - 18 mmol/L 9 eGFR >=60 mL/min/1.73m 72 Iron 41 - 186 ug/dL 78 TIBC 232 - 386 ug/dL 367 Transferrin Saturation 15.0 - 57.0 % 21.3 Normalized CAlcium 1.08 - 1.30 mmol/L 1.24 Ionized Calcium 1.08 - 1.30 mmol/L 1.27 Vitamin D 25 Hydroxy 31.0 - 80.0 ng/mL 24.6 (L) Vit D1,25 Dihydroxy 19.9 - 79.3 pg/mL 67.6 Magnesium 1.7 - 2.3 mg/dL 2.0 Phosphorus 2.7 - 4.8 mg/dL 3.3 PTH, Intact 15 - 65 pg/mL 64 Alk Phosphatase, Bone ug/L 19.1 Current Medications Current Outpatient Medications on File Prior to Visit Medication Sig ibuprofen (MOTRIN) 800 mg tablet Take 1 tablet by mouth every 8 hours as needed for Pain. cyclobenzaprine (FLEXERIL) 10 mg tablet Take 1 tablet by mouth every 8 hours as needed for Muscle Spasm (or pain). lidocaine (LIDODERM) 5 % Apply 1 Patch as directed every 24 hours. traMADol 50 mg tablet Take 0.5 tablets by mouth every 8 hours as needed for Pain. (Patient not taking: Reported on 11/09/2018 ) amLODIPine (NORVASC) 5 mg tablet Take 5 mg by mouth once daily. omega-3 acid ethyl esters (LOVAZA) 1 gram capsule Take 2 g by mouth once daily. Flaxseed Oil Oil No current facility-administered medications on file prior to visit. PHYSICAL EXAMINATION: [facility] 12/30/2012 [facility] General appearance: well appearing, alert, and in no acute distress Head: normal HISTORICALLY Eyes: Anicteric sclera. Pupils are equally round and reactive to light. Extraocular movements are intact. Skin: skin color, texture, turgor normal, Neck: Supple, no adenopathy; thyroid symmetric, normal size, no bruits Heart: RRR Lungs: CTAB Abdomen: central obesity Back: no pain to palpation over spine or costovertebral angles -Shoulder height position: normal -Pelvic Tilt: -Dorsal kyphosis: none -Lumbar curve: present -Scoliosis: -Movement: Normal upon exam Extremities: Extremities normal. Musculoskeletal: Spine range of motion normal. Muscular strength intact Neuro: Gait normal. Reflexes 2+, normal and symmetric. Sensation grossly intact. ASSESSMENT & PLAN 2. Age-related osteoporosis without current pathological fracture - ICD9: 733.01, ICD10: M81.0 - notable for L-4 compression - recommended either Reclast or prolia - she has chosen prolia - orders written; staff notified, pt would like inj in [place] -- will start inj at main and then alternate 1. Fractures - ICD9: 829.0, ICD10: T07.XXXA - unremarkable exam at her initial in person visit - images and reports have been requested - annual follow up coordinated with inj I thank you for the opportunity to participate in the care of Lui Cabrera Please do not hesitate to contact me if you have further concerns or questions. This chart has been routed to the referring provider electronically Millie Callahan, MS, RD, MD, CCD, FACN, FACP, FACE Diplomate, [place] [employer] Diplomate, National Board of [employer]ician Nutrition Specialists [facility] F-20 / [phone] / [id number] Any part of this document that has been added/copied & pasted from other documents has been reviewed for accuracy and updated as appropriate at the time of the patient encounter documented in this encounter [facility] 05-04-2022 Note HNO ID: [id number] Author: Millie Callahan MD Service: ? Author Type: Physician Type: Progress Notes Filed: 05/04/2022 11:52 AM Note Text: ENDOCRINE CALCIUM CLINIC REFERRAL Patient seen at the request of / referral from: Subha Nieto MD RE: osteoporosis I will communicate my recommendations and findings via shared medical record and/or USPS CC: spine fractures HPI: Liu Cabrera is a 62 year old female from [place], [place] who presents in referral for my expert opinion regarding spine fractures. No images available for review. Known HTN and hyperlipidemia, and IRASEMA - not using a CPAP - insulin resistance with last A1c of 5.7 - started on Fosamax but developed flu like symptoms - took 4 doses before stopping the drug - drinks some milk, takes a chewable calcium -- dose is unknown -Viactiv - D3 -- dose is unknown - multivitamin from a [employer] - zinc occasionally - REVIEW OF SYSTEMS GENERAL: wt is trending upwards HEENT: vision is good ENDO/NECK: Denies jaw pain, no difficulty swallowing;no dental issues CARDIOVASCULAR: HTN only GI: denies : none NEPHROLITHIASIS:none ENDO/RESIDENT SERVICES MANAGER: Menopause at age 53, no HRT ENDO/MUSCULOSKELETAL/BONE: back- lower; hurts all the time but is low grade FRACTURES: spine, no other fractures SKIN: PSYCH: HEMATOLOGY/LYMPHOLOGY none NEURO: Risk Factors for Osteoporosis and Fracture: Personal history of fracture since age 41, First degree relative with fracture, (mother) and Postmenopausal MEDICAL HISTORY: PAST MEDICAL HISTORY Diagnosis Date Hyperlipemia Hypertension SURGICAL HISTORY: PAST SURGICAL HISTORY Procedure Laterality Date TONSILLECTOMY HX FAMILY HISTORY: Family History Problem Relation Age of Onset Stroke Mother 71 SOCIAL HISTORY: Social History Marital status: Spouse name: Years of education: Number of children: Social History Main Topics Drug use: Unknown DXA: Images have been requested LABS: - none current Current Medications Current Outpatient Medications on File Prior to Visit Medication Sig ibuprofen (MOTRIN) 800 mg tablet Take 1 tablet by mouth every 8 hours as needed for Pain. cyclobenzaprine (FLEXERIL) 10 mg tablet Take 1 tablet by mouth every 8 hours as needed for Muscle Spasm (or pain). lidocaine (LIDODERM) 5 % Apply 1 Patch as directed every 24 hours. traMADol 50 mg tablet Take 0.5 tablets by mouth every 8 hours as needed for Pain. (Patient not taking: Reported on 11/09/2018 ) amLODIPine (NORVASC) 5 mg tablet Take 5 mg by mouth once daily. omega-3 acid ethyl esters (LOVAZA) 1 gram capsule Take 2 g by mouth once daily. Flaxseed Oil Oil No current facility-administered medications on file prior to visit. PHYSICAL EXAMINATION: BP 159/81 (BP Site: Left Arm, BP Position: Sitting, BP Cuff Size: Regular Adult) Pulse 65 Ht 157.4 cm (5' 1.97 ) Wt 82.2 kg (181 lb 4.8 oz) LMP 12/30/2012 BMI 33.19 kg/m? General appearance: well appearing, alert, and in no acute distress Head: normal Eyes: Anicteric sclera. Pupils are equally round and reactive to light. Extraocular movements are intact. Skin: skin color, texture, turgor normal, Neck: Supple, no adenopathy; thyroid symmetric, normal size, no bruits Heart: RRR Lungs: CTAB Abdomen: central obesity Back: no pain to palpation over spine or costovertebral angles -Shoulder height position: normal -Pelvic Tilt: -Dorsal kyphosis: none -Lumbar curve: present -Scoliosis: -Movement: Normal upon exam Extremities: Extremities normal. Musculoskeletal: Spine range of motion normal. Muscular strength intact Neuro: Gait normal. Reflexes 2+, normal and symmetric. Sensation grossly intact. ASSESSMENT AND PLAN 1. Fractures - ICD9: 829.0, ICD10: T07.XXXA - unremarkable exam - images and reports have been requested - will get together to discuss the lab results - virtually - - COMP METABOLIC PANEL - VITAMIN D 25 HYDROXY - VITAMIN D1 25-DIHYDR - MAGNESIUM BLD - PHOSPHORUS INORGANIC - PTH INTACT BLD - CALCIUM IONIZED BLOOD - IRON + TIBC - ALK PHOS BONE SPEC Follow up as need be - review images as they become available I thank you for the opportunity to participate in the care of Lui Cabrera Please do not hesitate to contact me if you have further concerns or questions. This chart has been routed to the referring provider electronically Millie Callahan, MS, RD, MD, CCD, FACN, FACP, FACE Diplomate, [place] [employer] Diplomate, National Board of Physician Nutrition Specialists [facility] F-20 / [phone] / [id number] Any part of this document that has been added/copied AND pasted from other documents has been reviewed for accuracy and updated as appropriate at the time of the patient encounter [facility] 05-04-2022 History of Present illness Narrative ENDOCRINE CALCIUM CLINIC REFERRAL Patient seen at the request of / referral from: Subha Nieto MD RE: osteoporosis I will communicate my recommendations and findings via shared medical record and/or USPS CC: spine fractures HPI: Lui Cabrera is a 62 year old female from [place], [place] who presents in referral for my expert opinion regarding spine fractures. No images available for review. Known HTN and hyperlipidemia, and IRASEMA - not using a CPAP - insulin resistance with last A1c of 5.7 - started on Fosamax but developed flu like symptoms - took 4 doses before stopping the drug - drinks some milk, takes a chewable calcium -- dose is unknown -Viactiv - D3 -- dose is unknown - multivitamin from a [employer] - zinc occasionally - REVIEW OF SYSTEMS GENERAL: wt is trending upwards HEENT: vision is good ENDO/NECK: Denies jaw pain, no difficulty swallowing;no dental issues CARDIOVASCULAR: HTN only GI: denies : none NEPHROLITHIASIS:none ENDO/RESIDENT SERVICES MANAGER: Menopause at age 53, no HRT ENDO/MUSCULOSKELETAL/BONE: back- lower; hurts all the time but is low grade FRACTURES: spine, no other fractures SKIN: PSYCH: HEMATOLOGY/LYMPHOLOGY none NEURO: Risk Factors for Osteoporosis and Fracture: Personal history of fracture since age 41, First degree relative with fracture, (mother) and Postmenopausal MEDICAL HISTORY: PAST MEDICAL HISTORY Diagnosis Date Hyperlipemia Hypertension SURGICAL HISTORY: PAST SURGICAL HISTORY Procedure Laterality Date TONSILLECTOMY HX FAMILY HISTORY: Family History Problem Relation Age of Onset Stroke Mother 71 SOCIAL HISTORY: Social History Marital status: Spouse name: Years of education: Number of children: Social History Main Topics Drug use: Unknown DXA: Images have been requested LABS: - none current Current Medications Current Outpatient Medications on File Prior to Visit Medication Sig ibuprofen (MOTRIN) 800 mg tablet Take 1 tablet by mouth every 8 hours as needed for Pain. cyclobenzaprine (FLEXERIL) 10 mg tablet Take 1 tablet by mouth every 8 hours as needed for Muscle Spasm (or pain). lidocaine (LIDODERM) 5 % Apply 1 Patch as directed every 24 hours. traMADol 50 mg tablet Take 0.5 tablets by mouth every 8 hours as needed for Pain. (Patient not taking: Reported on 11/09/2018 ) amLODIPine (NORVASC) 5 mg tablet Take 5 mg by mouth once daily. omega-3 acid ethyl esters (LOVAZA) 1 gram capsule Take 2 g by mouth once daily. Flaxseed Oil Oil No current facility-administered medications on file prior to visit. PHYSICAL EXAMINATION: BP 159/81 (BP Site: Left Arm, BP Position: Sitting, BP Cuff Size: Regular Adult) Pulse 65 Ht 157.4 cm (5' 1.97 ) Wt 82.2 kg (181 lb 4.8 oz) LMP 12/30/2012 BMI 33.19 kg/m General appearance: well appearing, alert, and in no acute distress Head: normal Eyes: Anicteric sclera. Pupils are equally round and reactive to light. Extraocular movements are intact. Skin: skin color, texture, turgor normal, Neck: Supple, no adenopathy; thyroid symmetric, normal size, no bruits Heart: RRR Lungs: CTAB Abdomen: central obesity Back: no pain to palpation over spine or costovertebral angles -Shoulder height position: normal -Pelvic Tilt: -Dorsal kyphosis: none -Lumbar curve: present -Scoliosis: -Movement: Normal upon exam Extremities: Extremities normal. Musculoskeletal: Spine range of motion normal. Muscular strength intact Neuro: Gait normal. Reflexes 2+, normal and symmetric. Sensation grossly intact. ASSESSMENT & PLAN 1. Fractures - ICD9: 829.0, ICD10: T07.XXXA - unremarkable exam - images and reports have been requested - will get together to discuss the lab results - virtually - - COMP METABOLIC PANEL - VITAMIN D 25 HYDROXY - VITAMIN D1 25-DIHYDR - MAGNESIUM BLD - PHOSPHORUS INORGANIC - PTH INTACT BLD - CALCIUM IONIZED BLOOD - IRON + TIBC - ALK PHOS BONE SPEC Follow up as need be - review images as they become available I thank you for the opportunity to participate in the care of Lui Cabrera Please do not hesitate to contact me if you have further concerns or questions. This chart has been routed to the referring provider electronically Millie Callahan, MS, RD, MD, CCD, FACN, FACP, FACE Diplomate, [place] [employer] Diplomate, National Board of [employer]ician [employer] F-20 / [phone] / [id number] Any part of this document that has been added/copied & pasted from other documents has been reviewed for accuracy and updated as appropriate at the time of the patient encounter documented in this encounter [facility] 05-04-2022 Instructions Millie Callahan MD - 05/04/2022 10:55 AM EDT DXA images X-rays MRI -- both reports and images documented in this encounter [facility] Diagnosis Fractures- Primary Closed fracture of unspecified bone Age-related osteoporosis without current pathological fracture Senile osteoporosis documented [facility]* Diagnosis Age-related osteoporosis without current pathological fracture- Primary Senile osteoporosis documented in this encounter [facility] note* Diagnosis Age-related osteoporosis without current pathological fracture- Primary Senile osteoporosis documented in this encounter [facility] note* Diagnosis Chest pain, unspecified type- Primary Palpitations documented in this encounter [facility] note* Diagnosis Palpitations Chest pain, unspecified type documented in this encounter [facility] note* Diagnosis Pain in left foot- Primary Pain in limb documented in this encounter [facility] note* Diagnosis Neuroma- Primary Other benign neoplasm of connective and other soft tissue of unspecified site documented in this encounter [facility] note* Diagnosis Age-related osteoporosis without current pathological fracture- Primary Senile osteoporosis documented in this encounter [facility] note* Diagnosis Pain in left foot Pain in limb documented in this encounter [facility] for referral (narrative)* Diagnostic Procedure Only (Routine) - Pending Review Specialty Diagnoses / Procedures Referred By Contac t Referred To Contact XR IMAGING Diagnoses Pain in left foot Procedures XR FOOT GENERAL 3V AP/LAT/OBL LEFT RADEX FOOT COMPLETE MINIMUM 3 VIEWS Silvestre De La [place] [address] Xr Imaging Referral ID Status Reason Start Date Expiration Date Visits Requested Visits Authorized [id number] Pending Review Auto-Generat ed Referral 03/03/2023 04/01/2024 1 1 T [facility] for referral (narrative)* Diagnostic Procedure Only (Routine) - Closed Specialty Diagnoses / Procedures Referred By Contac t Referred To Contact XR IMAGING Diagnoses Pain in left foot Procedures XR FOOT GENERAL 3V AP/LAT/OBL LEFT RADEX FOOT COMPLETE MINIMUM 3 VIEWS Silvestre De La Torre[address] [place] [address] [place] [address] Referral ID Status Reason Start Date Expiration Date V isits Requested Visits Authorized [id number] Closed Auto-Generate d Referral 03/03/2023 04/01/2024 1 1 [facility] for visit Narrative* Diagnostic Procedure Only (Routine) - Closed Specialty Diagnoses / Procedures Referred By Contac t Referred To Contact XR IMAGING Diagnoses Pain in left foot Procedures XR FOOT GENERAL 3V AP/LAT/OBL LEFT RADEX FOOT COMPLETE MINIMUM 3 VIEWS Silvest[place] [address] [place] [address] Referral ID Status Reason Start Date Expiration Date V isits Requested Visits Authorized [id number] Closed Auto-Generate d Referral 03/03/2023 04/01/2024 1 1 [facility] Summary Purpose Family History No Family History Records FoundNo Family History Records FoundNo Family History Records FoundNo Family History Records FoundNo Family History Records Found Advance Directives Latest Code Status on File Code Status Date Activated Date Inactivated Comments Full Code 09/01/2020 8:15 AM Discharge Instructions * Instructions* Hermila Desir MD - 09/01/2020 Please follow your post operative care instructions given to you by your Segregator Oncologist's office at your pre operative visit. Please call the office with questions or concerns and be sure to follow up at your scheduled post operative visit. documented in this encounter History of Present Illness * Kate Ocampo RN - 09/01/2020 4:22 PM EST Patient ambulated to bathroom, dizzy retirement through, wheelchair provided, wheeled to bathroom, voided without difficulty. Wheeled back to room and patient pivoted to bed, drinking fabiola ramsey. * Kate Ocampo RN - 09/01/2020 2:22 PM EST Discharge instructions given to Andre Cabrera () [phone]. Verbalized understanding, all questions answered. Patient would like tramadol ordered for pain control instead of oxycodone, Dr.Andrews galdamez. documented in this encounter Assessments Diagnosis S/P hysterectomy- Primary Acquired absence of both cervix and uterus Endometrial cancer (HCC) Malignant neoplasm of corpus uteri, except isthmus Medications Administered Section Active Administered Medications - up to 3 most recent administrations Medication Order MAR Action Action Date Dose Rate Site denosumab 60 mg injection (PROLIA) 60 mg, SUBCUTANEOUS, DIRECTED, Starting on 06/20/22 at 1630, Until Discontinued, Allow To Come To Room Temperature Before Administration. REFRIGERATE Given 08/24/2022 2:09 PM EST 60 mg Arm, Left Reason for Referral Specialty Diagnoses / Procedures Referred By Contac t Referred To Contact Diagnoses Palpitations Chest pain, unspecified type Procedures Exercise stress test John Worley MD [address] [place] [address] Referral ID Status Reason Start Date Expiration Date V isits Requested Visits Authorized [id number] Incomplete 01/09/2023 07/08/2023 1 1 Specialty Diagnoses / Procedures Referred By Contac t Referred To Contact Cardiology Diagnoses Palpitations Chest pain, unspecified type Procedures Exercise stress test John Worley MD [address] [place] [address] Referral ID Status Reason Start Date Expiration Date Visits Re quested Visits Authorized [id number] Closed 01/09/2023 07/08/2023 1 1 Additional Source Comments INFORMATION SOURCE (unrecogn ized section and content) DATE CREATED AUTHOR AUTHOR'S ORGANIZ ATION 09/07/2020 [facility] DATE CREATED AUTHOR AUTHOR'S ORGANIZ ATION 02/05/2023 [facility] DATE CREATED AUTHOR AUTHOR'S ORGANIZ ATION 02/15/2023 [facility] DATE CREATED AUTHOR AUTHOR'S ORGANIZ ATION 2023 [facility] Ordered Prescriptions (unrec ognized section and content) Source Comments (unrecognize d section and content) In the event this informatio n is protected by the Federal Confidentiality of Alcohol and Drug Abuse Patient Records regulations: The Federal rules restrict any use of the information to criminally investigate or prosecute any alcohol or drug abuse patient[facility] event this information is protected by the Federal Confidentiality of Alcohol and Drug Abuse Patient Records regulations: The Federal rules restrict any use of the information to criminally investigate or prosecute any alcohol or drug abuse patient.[facility] the event this information is protected by the Federal Confidentiality of Alcohol and Drug Abuse Patient Records regulations: The Federal rules restrict any use of the information to criminally investigate or prosecute any alcohol or drug abuse patient.[facility] the event this information is protected by the Federal Confidentiality of Alcohol and Drug Abuse Patient Records regulations: The Federal rules restrict any use of the information to criminally investigate or prosecute any alcohol or drug abuse patient.[facility] the event this information is protected by the Federal Confidentiality of Alcohol and Drug Abuse Patient Records regulations: The Federal rules restrict any use of the information to criminally investigate or prosecute any alcohol or drug abuse patient.[facility] the event this information is protected by the Federal Confidentiality of Alcohol and Drug Abuse Patient Records regulations: The Federal rules restrict any use of the information to criminally investigate or prosecute any alcohol or drug abuse patient.[facility] the event this information is protected by the Federal Confidentiality of Alcohol and Drug Abuse Patient Records regulations: The Federal rules restrict any use of the information to criminally investigate or prosecute any alcohol or drug abuse patient.[facility] the event this information is protected by the Federal Confidentiality of Alcohol and Drug Abuse Patient Records regulations: The Federal rules restrict any use of the information to criminally investigate or prosecute any alcohol or drug abuse patient.[facility] the event this information is protected by the Federal Confidentiality of Alcohol and Drug Abuse Patient Records regulations: The Federal rules restrict any use of the information to criminally investigate or prosecute any alcohol or drug abuse patient.[facility] the event this information is protected by the Federal Confidentiality of Alcohol and Drug Abuse Patient Records regulations: The Federal rules restrict any use of the information to criminally investigate or prosecute any alcohol or drug abuse patient.[facility] Reason for Visit (unrecogniz ed section and content) Reason Comments Prolia PA/labs Specialty Diagnoses / Procedures Referred By Contac t Referred To Contact Endocrinology / ENDOCRINOLOGY Diagnoses Age related osteoporosis Prolia Procedures ENDO INJECTION Millie Callahan MD [address] [place] [address] Main, Nurse Endo [address] [place] [address] Referral ID Status Reason Start Date Expiration Date Visits Re quested Visits Authorized [id number] Closed 07/08/2022 08/27/2022 99 99 Reason Comments prolia Reason Comments New Patient Self-referral; Famil ial H/o heart disease Chest Pain Palpitations Shortness of Breath Specialty Diagnoses / Procedures Referred By Contac t Referred To Contact Cardiology Diagnoses Chest pain Family history of heart disease Procedures MD OFFICE/OP CONSLTJ NEW/EST PT MOD MDM 40 MINUTES [facility] [address] [place] [address] John Worley MD [address] [place] [id number] Referral ID Status Reason Start Date Expiration Date Visits Re quested Visits Authorized [id number] Closed 11/11/2022 11/11/2023 1 1 Specialty Diagnoses / Procedures Referred By Contac t Referred To Contact Cardiology Diagnoses Palpitations Chest pain, unspecified type Procedures Exercise stress test John Worley MD [address] [place] [address] Referral ID Status Reason Start Date Expiration Date Visits Re quested Visits Authorized [id number] Closed 01/09/2023 07/08/2023 1 1 Reason Comments Prolia Reason Comments New Pain Care Teams (unrecognized sec tion and content) 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 Relationship Specialty Start Date End Date Maryjane Pedroza [address] [place] [address] PCP - General Family Medicine 05/06/19 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 Relationship Specialty Start Date End Date Maryjane Pedroza [address] [place] [address] PCP - General Family Medicine 05/06/19 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 Relationship Specialty Start Date End Date Maryjane Pedroza [address] [facility] [address] [place] [address] PCP - General Family Medicine 05/06/19 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 Relationship Specialty Start Date End Date Maryjane Pedroza [address] [facility] [address] [place] [address] PCP - General Family Medicine 05/06/19 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 Relationship Specialty Start Date End Date Maryjane Pedroza [address] [facility] [address] [place] [address] PCP - General 07/14/15 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 Relationship Specialty Start Date End Date Maryjane Pedroza [address] [facility] [address] [place] [address] PCP - General 07/14/15 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 Relationship Specialty Start Date End Date Maryjane Pedroza [address] [facility] [address] [place] [address] PCP - General Family Medicine 05/06/19 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 Relationship Specialty Start Date End Date Maryjane Pedroza [address] [facility] [address] [place] [address] PCP - General Family Medicine 05/06/19 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 Relationship Specialty Start Date End Date Maryjane Pedroza [address] [place] [address] PCP - General Family Medicine 05/06/19 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 This clinical summary was aggregated from multiple sources. Caution should be exercised in using it in the provision of clinical care. This summary normalizes information from multiple sources, and as a consequence, information in this document may materially change the coding, format and clinical context of patient data. In addition, data may be omitted in some cases. CLINICAL DECISIONS SHOULD BE BASED ON THE PRIMARY CLINICAL RECORDS. [facility]. provides no warranty or guarantee of the accuracy or completeness of information in this document.
== END | disposition home or self-care (01) ==
LOC: OPBI 12:23
PROVIDERS: PCP Family Medicine; Referring Provider Obstetrics & Gynecology; Visit Provider Obstetrics & Gynecology
DX: Z12.31 Encounter for screening mammogram for malignant neoplasm of breast (principal)
CPT/HCPCS: 77063; 77067

== ENCOUNTER → 2023-10-31 | Outpatient (CLI) | payer BC, SELFPAY ==
[2023-10-31 18:00] LABS: Hemoglobin A1c 5.9 % (3.8-5.6)
[2023-10-31 18:17] LABS: AST(SGOT) 26 U/L (15-37); Alanine Aminotransfer ALT/SGPT 34 U/L (13-56); Anion Gap 6 (5-15); BUN 14 mg/dL (7-18); BUN/Creat Ratio 14.4 RATIO (10-20); Calcium,Total 9.2 mg/dL (8.5-10.1); Chloride 105 mmol/L (98-107); Cholesterol 290 mg/dL (200); Creatinine, Serum 0.97 mg/dL (0.55-1.02); EST Glomerular Filtration Rate 62 mL/min (>60); Est Glom Filt Rate - Afr Amer 75 mL/min (>60); Glucose 113 mg/dL (74-106); High Density Lipoprotein 47 mg/dL; Potassium 3.7 mmol/L (3.5-5.1); Sodium Level 141 mmol/L (136-145); Triglycerides 323 mg/dL; Very Low Density Lipoprotein 65 mg/dL (5-40)
[2023-10-31 18:19] LABS: Microalbumin,Random Urine 7.1 mg/L (NO RANGE EST.)
== END | disposition home or self-care (01) ==
LOC: MFPLAB 14:55
PROVIDERS: PCP Family Medicine; Visit Provider Family Medicine
DX: I10 Essential (primary) hypertension (principal); E78.00 Pure hypercholesterolemia, unspecified
CPT/HCPCS: 36415; 80048; 80061; 82043; 82570; 83036; 84450; 84460

== ENCOUNTER → 2024-06-20 | Outpatient (CLI) | payer BC, SELFPAY ==
--- NOTE | 2024-06-20 15:25 | BD_ITS ---
STUDY: DUAL ENERGY X-RAY ABSORPTIOMETRY / DXA REASON FOR EXAM: Female, 64 years old. M810 TECHNIQUE: Bone Mineral Density (BMD) measurements of lumbar spine and bilateral hips were obtained. COMPARISON: Comparison is made with prior study May 18, 2021. FINDINGS: Lumbar Spine (L1-L4): g/cm2 (0.669) / T-score (-3.4) / Z-score (-1.8) Findings are suggestive of osteoporosis with a high fracture risk. Left Femur Total: g/cm2 (0.851) / T-score (-0.7) / Z-score (0.4) Left Femoral Neck: g/cm2 (0.570) / T-score (-2.5) / Z-score (-1.1) Right Femur Total: g/cm2 (0.753) / T-score (-1.5) / Z-score (-0.4) Right Femoral Neck: g/cm2 (0.531) / T-score (-2.9) / Z-score (-1.4) The T-Scores on the most recent prior examination were: Lumbar Spine (L1-L4): There has been improvement of bone density since the previous examination. Left Femur Total: which represents an improvement of 3.5%. Right Femur Total: which represents an improvement of 3.2%. BD/Dexa Bone Density Study IMPRESSION: The patient is considered osteoporotic as outlined below according to World Main Organization (WHO) criteria with a high fracture risk. There has been improvement of bone density since the previous examination. Reference Information: The T-score is the number of standard deviations above or below the standard which is normal for young adults at their peak bone mineral density. The World Health Organization (WHO) interprets the T-scores as follows: Above -1 Normal bone density Between -1 and -2.5 Osteopenia Equal to / or below -2.5 Osteoporosis As a practical clinical guideline, osteopenia may be graded as follows: Mild -1 through -1.5 Moderate -1.6 through -2.0 Severe -2.1 through -2.4 The Z-score is the number of standard deviations above or below age-matched controls. A Z-score of less than -1.5 would be considered abnormal. References: 1. NIH Osteoporosis and Related Bone Diseases www osteo.org 2. International Society for Clinical Densitometry www iscd.org 3. National Osteoporosis Foundation www nof.org Electronically Signed: Elliot Root MD at 9:35 EDT ,
== END | disposition home or self-care (01) ==
LOC: OPBD 15:15
PROVIDERS: PCP Family Medicine; Referring Provider Family Medicine; Visit Provider Family Medicine
DX: M81.0 Age-related osteoporosis without current pathological fracture (principal)
CPT/HCPCS: 77080

== ENCOUNTER → 2024-09-24 | Outpatient (CLI) | payer BC, SELFPAY ==
--- NOTE | 2024-09-24 10:15 | BI_ITS ---
PROCEDURE: SCRN MAMM (CAD)W/RAMOS BILAT REASON FOR EXAM: F, Age 64 y/o , No family history. TECHNIQUE: Bilateral screening digital breast tomosynthesis with 2D and 3D images. Computer aided detection. COMPARISON: Prior exam(s) dating back to September 19, 2023.. FINDINGS: There are scattered areas of fibroglandular density. There has been no change. No suspicious masses, areas of developing architectural distortion, or suspicious calcifications. BI/SCRN MAMM (CAD)W/RAMOS BILAT IMPRESSION: BI-RADS 1: NEGATIVE. RECOMMEND ANNUAL MAMMOGRAPHIC SCREENING. Follow-up code: Routine Follow-up The patient will be notified of the results by letter. Reading Location: [place] [address]
== END | disposition home or self-care (01) ==
PROVIDERS: PCP Family Medicine; Referring Provider Obstetrics & Gynecology; Visit Provider Obstetrics & Gynecology
DX: Z12.31 Encounter for screening mammogram for malignant neoplasm of breast (principal)
CPT/HCPCS: 77063; 77067

== ENCOUNTER → 2024-12-10 | Outpatient (CLI) | payer BC, SELFPAY | END | disposition home or self-care (01) | LOC: LABSPEC 11:55 | PROVIDERS: PCP Family Medicine; Referring Provider Nurse Practitioner Women's Health; Visit Provider Nurse Practitioner Women's Health | DX: R30.0 Dysuria (principal) | CPT/HCPCS: 87077; 87086; 87088; 87186 ==

== ENCOUNTER 2025-02-13 08:58 | Day surgery (SDC) | payer BC, SELFPAY ==
--- NOTE | 2025-02-11 12:08 | EKG12_ITS ---
Test Reason : PRE OP Blood Pressure : */* mmHG Vent. Rate : 71 BPM Atrial Rate : 71 BPM P-R Int : 168 ms QRS Dur : 76 ms QT Int : 384 ms P-R-T Axes : 33 44 68 degrees QTcB Int : 417 ms Normal sinus rhythm Low voltage QRS Borderline ECG Confirmed by KAMALA BASS, MARLIN ([id number]), features editor AMADEO RAMIRES ([id number]) on 02/12/2025 7:03:01 AM Referred By: Joyce Jon Confirmed By: MARLIN WRAY MD
[2025-02-11 12:53] LABS: Hematocrit 44.5 % (37-47); Mean Corp Hgb Conc 33.7 g/dL (32-36); Mean Corpuscular Hgb 30.2 pg (27.0-32.0); Mean Corpuscular Volume 89.5 fL (81-99); Mean Platelet Vol. 10.1 fl (6.2-12.0); Platelet Count 223 K/mm3 (150-450); RBC Distribution Width CV 12.9 % (11.6-14.6); RBC Distribution Width SD 42.1 fl (35.1-43.9); Red Blood Count 4.97 M/mm3 (4.2-5.4); White Blood Count 5.5 K/mm3 (4.4-11.0)
--- NOTE | 2025-02-12 13:50 | PAT.ANESEVAL ---
Pre-Assessment Diagnosis/Proposed Procedure Planned Operative Procedure(s): cysto, possible bladder biopsy with fulguration, urethral meatus biopsy Anesthesia History Anesthesia History - excel specialist: Anesthesia History - excel specialist Hx Hospitalization No 02/07/25 11:21 Any Problems With Anesthesia Yes: trouble waking up 02/07/25 11:21 Cholinesterase deficiency No 02/07/25 11:21 You/Your Family Experience No 02/07/25 11:21 fever (hyperthermia) with Relationship Recent Exposure to Contagious Disease Does patient have nerve No 02/07/25 11:21 stimulator Patient instructed to have device shut off --Does patient have Pacemaker or ICD? When Was Last Pacemaker Check QUESTION #4 FULL TEXT: You/Your Family Experience fever (hyperthermia) with Anesthesia Last Oral Intake Last Oral intake: Last Oral Intake NPO since Meds taken in AM with sips of water? Meds patient instructed to take am of surgery PONV PONV - excel specialist: PONV - excel specialist Female Yes 02/07/25 11:21 HX of Motion Sickness Yes 02/07/25 11:21 HX of N/V After Surgery Yes 02/07/25 11:21 Non-Smoker Yes 02/07/25 11:21 Duration of Surgery greater No 02/07/25 11:21 than 60 minutes Number of Risk Factors 4 02/07/25 11:21 PONV Score Severe Risk 02/07/25 11:21 Height & Weight Height & Weight: Anesthesia: Height & Weight Height 5 ft 2 in 12/10/24 11:00 Respiratory Assessment Respiratory Assessment - excel specialist: Respiratory Tract Infection Hx - excel specialist Hx Respiratory Tract Infection No 02/07/25 11:21 STOP Sleep Apnea STOP Sleep Apnea - excel specialist: STOP Sleep Apnea - excel specialist Hx Hypertension Yes: on meds 02/07/25 11:21 Hx Sleep Apnea Yes 02/07/25 11:21 CPAP Yes: non compliant 02/07/25 11:21 BIPAP No 02/07/25 11:21 Do you snore loudly (louder than talking or can be heard Do you often feel tired/ fatigued/ sleepy during daytime? Has anyone observed you stop breathing during sleep? STOP Results Positive 02/07/25 11:21 QUESTION #5 FULL TEXT : Do you snore loudly (louder than talking or can be heard through closed doors)? 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 Specify any problems Hx of Preganancy in last 3 No 02/07/25 11:21 Months Nurse Filling Out Transfusion ABBY 02/07/25 11:21 & Questions: Date: 02/07/25 02/07/25 11:21 Time: :02/07/25 11:21 Patient unable to answer at this time (ie. confused, unrespo /Reproduction History /Reproductive History - excel specialist: /Reproductive Hx- excel specialist Hx Now No 02/07/25 11:21 Gestational Age (in weeks): EDC: Hx Hx Para Hx Section SAB No 02/07/25 11:21 Active Medications Active Medications: Current Medications Generic Name Dose Route Start Last Admin Trade Name Freq PRN Reason Stop Dose Admin Cefazolin Sodium 2 gm/ Sodium 110 mls @ 150 mls/hr 02/13/25 12:30 Chloride IV 02/13/25 13:13 INTRAOP [facility] Medical History (Updated 02/07/25 @ 11:21 by Heidi Guzmán) Wears glasses History of Clostridium difficile infection Cancer Anxiety Back pain Difficulty swallowing Gastric reflux Non-smoker CPAP (continuous positive airway pressure) dependence Sleep apnea History of stress test Hyperlipidemia History of anxiety Home Medications ?Medication ?Instructions ?Recorded ?Last Taken ?Type cholecalciferol (vitamin D3) 50 50 mcg PO DAILY 03/06/23 Unknown History mcg (2,000 unit) capsule magnesium citrate 125 mg capsule 125 mg PO DAILY 03/06/23 Unknown History multivitamin 1 tab PO DAILY 10/10/23 Unknown History amlodipine 5 mg tablet 5 mg PO DAILY 04/23/24 Unknown History pantoprazole 20 mg tablet,delayed 20 mg PO DAILY 04/23/24 Unknown History release losartan 50 mg-hydrochlorothiazide 1 tab PO DAILY 02/07/25 Unknown History 12.5 mg tablet Allergy/AdvReac Type Severity Reaction Status Date / Time Sulfa (Sulfonamide Allergy Mild other Verified 02/07/25 11:07 Antibiotics) Family History Mother Diabetes Lymphoma Unknown No problems noted. 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 Normal sinus rhythm. Recommendation Anesthesia Recommendation Anesthesia recommendation: OPTIMIZED for anesthesia
[2025-02-12 18:02] LABS: Anion Gap 11 (5-15); BUN 13 mg/dL (4-19); BUN/Creat Ratio 9.8 RATIO (10-20); Calcium,Total 9.3 mg/dL (7.6-11.0); Carbon Dioxide 25.9 mmol/L (21.0-32.0); Chloride 102 mmol/L (98-108); Creatinine, Serum 1.35 mg/dL (0.70-1.20); EST Glomerular Filtration Rate 44 (>60); Glucose 100 mg/dL (70-99); Potassium 4.1 mmol/L (3.3-5.1); Sodium Level 138 mmol/L (133-145)
[2025-02-13] VITALS (8 sets, daily range): BP systolic 134–161; BP diastolic 75–78; PULSE 80–94; RESP 16; TEMP 36.3–37.2; O2SAT 94–97; BMI 34.0
--- NOTE | 2025-02-13 09:49 | OP.PCM_ITS ---
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: No Type of Anesthesia: General RN Documented Start/Stop Times: Operation Date: 02/13/25 10:50 Case Time Into Pre-Op 02/13/25 09:12 Anesthesia Start 02/13/25 10:49 Into Room 02/13/25 10:49 Procedure Start 02/13/25 11:03 Procedure End 02/13/25 11:14 Anesthesia End 02/13/25 11:21 Out of Room 02/13/25 11:21 Into Recovery 02/13/25 11:24 Procedure Start Time: 11:03 Procedure Stop Time: 11:14 Select all DRAINS/GRAFTS/IMPLANTS that apply: None Estimated Blood Loss: 5cc Specimen collected: Yes Description of specimen(s) removed: Biopsy urethral meatus Description of surgery: The patient is a 64-year-old female with vaginal atrophy, urinary tract infection and an abnormality at the distal urethra. She now presents for cystoscopic evaluation and biopsy of the urethra under anesthesia. Informed consent was obtained. The patient was taken to the operating room and placed on the operating room table. Anesthesia monitored the head, neck, airway, IV access and vital signs throughout the case. Once anesthesia was apparently administered, she was placed into dorsolithotomy position and was prepped and draped in usual sterile fashion. The cystoscope was inserted through the urethra under direct visualization into the urinary bladder. The bladder mucosa revealed no evidence of mass, erythema, ulceration or foreign body. The remainder of the urethra aside from the meatus was found to be within normal limits. The bladder was emptied and the cystoscope was removed. A Anila was utilized to grasp the erythematous area of the urethral meatus and it was removed using a knife. The area was sutured with a 4-0 chromic for hemostatic control. Bacitracin was then applied. At this time the patient was then awakened and taken to the recovery room in good condition. There were no complications during this procedure. Surgical Findings: Normal cystoscopy, erythematous urethral meatus lesion Complications Complications: No Admit VTE Documentation VTE Present on Admission: Yes VTE Mechan Device Prophylaxis: SCD's VTE Pharm Prophylaxis ordered?: No Reason prophylaxis not ordered: Treatment Not Indicated
[2025-02-13] MEDS: Lactated Ringers 1,000 ML 15 ML IV (09:50)
--- NOTE | 2025-02-13 09:52 | EX.PCM.DISCH ---
Discharge Instructions Diet Discharge Diet: No restrictions Activity Discharge Activity: Return to Normal Activity Lifting Restrictions: Avoid lifting over 10 pounds for the next 2 to 3 days Dressing / Incision Call your doctor if your incision/area has: Continuous Slow Oozing, Sudden Increased Bleeding, Increased Pain/ Swelling and Foul Smelling Discharge Call your doctor if you observe: Fever of 101 or Higher, Inability to urinate and Inability to have a bowel movement Cleanse incision/area with: Keep Dressing Clean & Dry Follow Up Care Please Follow Up With: Joyce Jon MD When: The office will call to make arrangements for follow-up next week. Test Results: Test results from this visit will be discussed in further detail at your follow-up appointment, if applicable. Discharge Plan Admission Attending Provider: Joyce Jon Primary Care Provider: Arie Ocampo Instructions Print Language: Yemeni Discharge Orders/Prescriptions Prescriptions: New phenazopyridine 200 mg tablet 200 mg PO TID PRN (Reason: pain) Qty: 30 0RF tramadol 50 mg tablet 50 mg PO Q8H PRN (Reason: pain) 3 Days Qty: 10 0RF cephalexin 500 mg capsule 500 mg PO Q12 3 Days Qty: 6 0RF Continued cholecalciferol (vitamin D3) 50 mcg (2,000 unit) capsule 50 mcg PO DAILY magnesium citrate 125 mg capsule 125 mg PO DAILY multivitamin Tablet 1 tab PO DAILY amlodipine 5 mg tablet 5 mg PO DAILY pantoprazole 20 mg tablet,delayed release (DR/EC) 20 mg PO DAILY losartan-hydrochlorothiazide 50-12.5 mg tablet 1 tab PO DAILY Referrals / Follow Up: Arie Ocampo MD [Primary Care Provider] - Disposition Disposition (needs filled in before D/C Order can be placed): Home, Self Care
--- NOTE | 2025-02-13 10:09 | PCM.PRE.AN2 ---
ASA Classification* ASA Classification ASA Classification: 3 (HTN, IRASEMA (untreated/uncompliant with CPAP), PONV, GERD, anxiety) Assessment & Plan Anesthesia* Anesthesia Assessment Anesthesia Assessment: Discussed sedation and/or anesthesia options, risks, benefits, and alternatives with patient/parents/legal guardian/POA. Questions invited. The patient/parents/legal guardian/POA seems to understand and agrees to proceed with anesthesia plan. Reviewed the physical assessment, medical history, allergy history and patient home medications list prior to surgery/procedure/anesthetic and documented any changes. Performed airway and anesthesia risk assessments. Anesthesia Type Anesthesia Type: General (TIVA for PONV ) History Source History Obtained from:: Patient and Chart Anesthesia Focused Assessment* Temperature: 98.9 F Pulse Rate: 86 Blood Pressure: 161/78 Respiratory Rate: 16 Pulse Ox: 97 Oxygen Delivery Method: Room Air Airway Assessment Mouth opens: >3 cm Mallampati Score: IV Teeth Condition: Intact Neck Range of motion (ROM): Full ROM Labs Anesthesia Preop lab: CBC WBC 5.5 K/mm3 (4.4-11.0) 02/11/25 12:17 02/11/25 RBC 4.97 M/mm3 (4.2-5.4) 02/11/25 12:17 02/11/25 Hgb 15.0 g/dL (12.0-15.0) 02/11/25 12:17 02/11/25 Hct 44.5 % (37-47) 02/11/25 12:17 02/11/25 Plt Count 223 K/mm3 (150-450) 02/11/25 12:17 02/11/25 CHEMISTRY Potassium 4.1 mmol/L (3.3-5.1) 02/12/25 16:02/12/25 Sodium 138 mmol/L (133-145) 02/12/25 16:02/12/25 BUN 13 mg/dL (4-19) 02/12/25 16:02/12/25 Creatinine 1.35 mg/dL (0.70-1.20) H 02/12/25 16:09 02/12/25 Glucose 100 mg/dL (70-99) H 02/12/25 16:02/12/25 TSH 1.39 uIU/mL (0.358-3.74) 08/14/20 11:30 08/14/20 COAG Pre-Assessment Diagnosis/Proposed Procedure Planned Operative Procedure(s): cysto, possible bladder biopsy with fulguration, urethral meatus biopsy Anesthesia History Anesthesia History - children's court magistrate: Anesthesia History - children's court magistrate Hx Hospitalization No 02/07/25 11:21 Any Problems With Anesthesia Yes: trouble waking up 02/07/25 11:21 Cholinesterase deficiency No 02/07/25 11:21 You/Your Family Experience No 02/07/25 11:21 fever (hyperthermia) with Relationship Recent Exposure to Contagious No 02/13/25 09:34 Disease Does patient have nerve No 02/07/25 11:21 stimulator Patient instructed to have device shut off --Does patient have Pacemaker No 02/13/25 09:34 or ICD? When Was Last Pacemaker Check QUESTION #4 FULL TEXT: You/Your Family Experience fever (hyperthermia) with Anesthesia Last Oral Intake Last Oral intake: Last Oral Intake NPO since 23:00 02/13/25 09:34 Meds taken in AM with sips of No 02/13/25 09:34 water? Meds patient instructed to take am of surgery PONV PONV - children's court magistrate: PONV - children's court magistrate Female Yes 02/07/25 11:21 HX of Motion Sickness Yes 02/07/25 11:21 HX of N/V After Surgery Yes 02/07/25 11:21 Non-Smoker Yes 02/07/25 11:21 Duration of Surgery greater No 02/07/25 11:21 than 60 minutes Number of Risk Factors 4 02/07/25 11:21 PONV Score Severe Risk 02/07/25 11:21 Height & Weight Height & Weight: Anesthesia: Height & Weight Height 5 ft 2 in 02/13/25 09:34 Weight: 84.368 kg 02/13/25 09:34 Body Mass Index (BMI) 34.0 02/13/25 09:34 Respiratory Assessment Respiratory Assessment - children's court magistrate: Respiratory Tract Infection Hx - children's court magistrate Hx Respiratory Tract Infection No 02/07/25 11:21 STOP Sleep Apnea STOP Sleep Apnea - children's court magistrate: STOP Sleep Apnea - children's court magistrate Hx Hypertension Yes: on meds 02/07/25 11:21 Hx Sleep Apnea Yes 02/07/25 11:21 CPAP Yes: non compliant 02/07/25 11:21 BIPAP No 02/07/25 11:21 Do you snore loudly (louder than talking or can be heard Do you often feel tired/ fatigued/ sleepy during daytime? Has anyone observed you stop breathing during sleep? STOP Results Positive 02/07/25 11:21 QUESTION #5 FULL TEXT : Do you snore loudly (louder than talking or can be heard through closed doors)? Tobacco Use History Tobacco Use History - children's court magistrate: Tobacco Use History - children's court magistrate Tobacco Use Smoking Status Never smoker 02/07/25 11:21 Hx Tobacco Use No 02/07/25 11:21 Years Smoking Packs Smoked per Day Smoking Cessation Date was within the last 15 years Hx Smoking Cessation Date Hx Smoking Cessation Counseling Hematologic Medial History Hematologic Hx - children's court magistrate: Hematologic Medical Hx - box lidder Hx of Blood Transfusion No 02/07/25 11:21 Hx of Transfusion in last 3 No 02/07/25 11:21 Months Date of Last Transfusion (if within last 3 months) Ever experience any problems No 02/07/25 11:21 with transfusion(s)? Specify any problems Hx of Preganancy in last 3 No 02/07/25 11:21 Months Nurse Filling Out Transfusion JZOLLINGE 02/07/25 11:21 & Questions: Date: 02/07/25 02/07/25 11:21 Time: 11:02/07/25 11:21 Patient unable to answer at this time (ie. confused, unrespo /Reproduction History /Reproductive History - children's court magistrate: /Reproductive Hx- children's court magistrate Hx Now No 02/07/25 11:21 Gestational Age (in weeks): EDC: Hx Hx Para Hx Section SAB No 02/07/25 11:21 Active Medications Active Medications: Current Medications Generic Name Dose Route Start Last Admin Trade Name Freq PRN Reason Stop Dose Admin Cefazolin Sodium 2 gm/ Sodium 110 mls @ 150 mls/hr 02/13/25 12:30 Chloride IV 02/13/25 13:13 INTRAOP ONE Lactated Ringer's 1,000 mls @ 15 mls/hr 02/13/25 09:15 02/13/25 09:50 IV 15 mls/hr .Q48H KIMO Administration PFSH Medical History (Updated 02/07/25 @ 11:21 by Heidi Guzmán) Wears glasses History of Clostridium difficile infection Cancer Anxiety Back pain Difficulty swallowing Gastric reflux Non-smoker CPAP (continuous positive airway pressure) dependence Sleep apnea History of stress test Hyperlipidemia History of anxiety Home Medications ?Medication ?Instructions ?Recorded ?Last Taken ?Type cholecalciferol (vitamin D3) 50 50 mcg PO DAILY 03/06/23 Unknown History mcg (2,000 unit) capsule magnesium citrate 125 mg capsule 125 mg PO DAILY 03/06/23 Unknown History multivitamin 1 tab PO DAILY 10/10/23 Unknown History amlodipine 5 mg tablet 5 mg PO DAILY 04/23/24 Unknown History pantoprazole 20 mg tablet,delayed 20 mg PO DAILY 04/23/24 Unknown History release losartan 50 mg-hydrochlorothiazide 1 tab PO DAILY 02/07/25 Unknown History 12.5 mg tablet Allergy/AdvReac Type Severity Reaction Status Date / Time Sulfa (Sulfonamide Allergy Mild other Verified 02/13/25 09:34 Antibiotics) Family History Mother Diabetes Lymphoma Unknown No problems noted. 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 Physical Exam Const alert and oriented x3 Nutritional Appearance: obese Resp normal respiratory effort, normal air movement and clear to auscultation bilaterally Cardio regular rate, regular rhythm, no murmurs and diaphoretic
--- NOTE | 2025-02-13 10:50 | BLA_PTH ---
PATIENT: MARGARITA MENDIETA LOC: [facility] [place] U#:[id number] AGE/SX: 64/F ROOM: RE02/13/[address]: Dr. Joyce Jon MD : 1960 BED: DIS: 02/13/2025 SPEC #: [id number] RECD: 02/13/25 13:40 STATUS: CARYL RELilo #: [id number] MAXX: 02/13/25 10:[address]: Joyce Jon DEPT: SURGICAL PATHOLOGY RECD BY: Roman Patterson ENTERED: 02/13/25 14:30 SP TYPE: BLADDER BX OTHR DR: Dr. Arie Ocampo MD Tissues: A - Urinary bladder, NOS Procedures: Immunohistochemical Stains Surgery Specimen Level IV IHC Stain ADDITIONAL HEADER OPERATION: Possible bladder biopsy with fulguration PRE-OP DIAGNOSIS: Urethral lesion, UTI, nocturia TISSUE SUBMITTED: A- Urethral meatal lesion MICROSCOPIC DIAGNOSIS A. Urethra, lesion, biopsy: * Benign urothelium with squamous metaplasia, chronic inflammation, and urethritis glandularis. * CK20 is negative. * p53 is wild type. * Ki67 proliferative index is not increased. MICROSCOPIC DESCRIPTION Slides are reviewed. All matched controls reacted appropriately. These tests were developed and their performance characteristics determined by [facility]. They may not have been cleared or approved by the U.S. Food and Drug Administration. The FDA has determined that such clearance or approval is not necessary.? The above immunohistochemical/dualISH?markers are reviewed by the Pathologist. GROSS DESCRIPTION A.? Received in formalin labeled with the patient's name and date of . Designated as urethral meatus lesion is a 0.9 x 0.4 x 0.3 cm white-pink focally erythematous, irregular soft tissue fragment devoid of orientation.? A definitive resection margin is unable to be determined.? The specimen is bisected (on the long axis) and entirely submitted in 1 cassette. AK 02/13/2025 CPT:[id number]
[2025-02-13] MEDS: Cefazolin 2 GM in 0.9% Normal Saline (100mL Bag) 100 ML IV (11:00)
[2025-02-13] MEDS: BACITRACIN/POLYMYXIN B 15 GM Tube 1 APPLIC (11:01)
--- NOTE | 2025-02-13 11:26 | PCM.POST.ANE ---
Anesthesia: Postop Eval I Current Vital Signs Temperature: 97.5 F Pulse Rate: 94 Blood Pressure: 146/77 Respiratory Rate: 16 Pulse Ox: 95 Oxygen Delivery Method: Room Air Assessment Airway patent: Yes Spontaneous unlabored respirations: Yes Mental status: Asleep nausea: No Vomiting: No Anesthesia Complication: No Fluid Hydration Crystalloid volume administer (ml): 250 Total IV fluid infused: 250 Progress Note Anesthesia document: Postop Eval 1 completed: Yes
--- NOTE | 2025-02-13 12:12 | POSTOPAN2_ITS ---
Anesthesia Postop Eval I Sum Postop Eval Completion status Anesthesia document: Postop Eval 1 completed: Yes Anesthesia Postop Eval I Summary Anesthesia Postop Eval I Summary: Anesthesia Postop Eval I: Assessment Summary Airway patent Yes 02/13/25 11:26 TUBE MACHINE OPERATOR HELPER.[email or web address] Spontaneous unlabored Yes 02/13/25 11:26 TUBE MACHINE OPERATOR HELPER.JBOR respirations Mental status Asleep 02/13/25 11:26 TUBE MACHINE OPERATOR HELPER.JBOR nausea No 02/13/25 11:26 TUBE MACHINE OPERATOR HELPER.JBOR Vomiting No 02/13/25 11:26 TUBE MACHINE OPERATOR HELPER.JBOR Anesthesia Postop Eval I: Fluid Summary Crystalloid volume administer 250 02/13/25 11:26 TUBE MACHINE OPERATOR HELPER.JBOR (ml) Colloids volume administered ( ml) Blood Product volume administered (ml) Total IV fluid infused 250 02/13/25 11:26 TUBE MACHINE OPERATOR HELPER.JBOR Anesthesia Postop Eval I: Summary Notes Anesthesia Complication No 02/13/25 11:26 TUBE MACHINE OPERATOR HELPER.JBOR Anesthesia Complication Comment: Post-operative progress note Anesthesia: Postop Eval II Evaluation Mental status: Awake Pain Level: 0 nausea: No Vomiting: No Complications Anesthesia Complication: No
--- NOTE | 2025-02-13 12:12 | PCM.POSTANE2 ---
Anesthesia Postop Eval I Sum Postop Eval Completion status Anesthesia document: Postop Eval 1 completed: Yes Anesthesia Postop Eval I Summary Anesthesia Postop Eval I Summary: Anesthesia Postop Eval I: Assessment Summary Airway patent Yes 02/13/25 11:26 MAINTENANCE PAINTER.JBOR Spontaneous unlabored Yes 02/13/25 11:26 MAINTENANCE PAINTER.JBOR respirations Mental status Asleep 02/13/25 11:26 MAINTENANCE PAINTER.JBOR nausea No 02/13/25 11:26 MAINTENANCE PAINTER.JBOR Vomiting No 02/13/25 11:26 MAINTENANCE PAINTER.JBOR Anesthesia Postop Eval I: Fluid Summary Crystalloid volume administer 250 02/13/25 11:26 MAINTENANCE PAINTER.JBOR (ml) Colloids volume administered ( ml) Blood Product volume administered (ml) Total IV fluid infused 250 02/13/25 11:26 MAINTENANCE PAINTER.JBOR Anesthesia Postop Eval I: Summary Notes Anesthesia Complication No 02/13/25 11:26 MAINTENANCE PAINTER.JBOR Anesthesia Complication Comment: Post-operative progress note Anesthesia: Postop Eval II Evaluation Mental status: Awake Pain Level: 0 nausea: No Vomiting: No Complications Anesthesia Complication: No
== END 2025-02-13 12:35 | disposition home or self-care (01) ==
LOC: SDC 08:59 → AC 09:00
PROVIDERS: PCP Family Medicine; Referring Provider Urology; Visit Provider Urology
PROC: 0TBB8ZX Excision of Bladder, Via Natural or Artificial Opening Endoscopic, Diagnostic (ICD-10-PCS; CPT 52204; principal; 2025-02-13 10:35)
DX: D30.4 Benign neoplasm of urethra (principal); N34.1 Nonspecific urethritis; N95.2 Postmenopausal atrophic vaginitis; N94.12 Deep dyspareunia; N39.46 Mixed incontinence; I10 Essential (primary) hypertension; R15.9 Full incontinence of feces; R35.1 Nocturia; Z79.899 Other long term (current) drug therapy
CPT/HCPCS: 52204; 00910; 36415; 80048; 85027; 88305; 88341; 88342; 93005; J2405

== ENCOUNTER 2025-03-04 13:56 | Outpatient (CLI) | payer BC, SELFPAY ==
[2025-03-04 16:39] LABS: CRP 3.33 mg/L (0.0-3.0); Cholesterol 295 mg/dL (<=200); Low Density Lipoprotein Calc. 195 mg/dL; Triglycerides 285 mg/dL; Very Low Density Lipoprotein 57 mg/dL (5-40); cholesterol:hdl ratio screen 6.89
[2025-03-06 13:08] LABS: Lyme Scn Total Ab w/Rflx Negative (Negative)
== END 2025-03-04 23:59 | disposition home or self-care (01) ==
LOC: MFPLAB 13:57
PROVIDERS: PCP Family Medicine; Referring Provider Family Medicine; Visit Provider Family Medicine
DX: S30.861A Insect bite (nonvenomous) of abdominal wall, initial encounter (principal); W57.XXXA Bitten or stung by nonvenomous insect and other nonvenomous arthropods, initial encounter; E78.00 Pure hypercholesterolemia, unspecified
CPT/HCPCS: 36415; 80061; 83036; 86140; 86618